=== PATIENT | female | born 1990 | race American Indian/Alaskan Native ===

== ENCOUNTER 2021-02-01 00:08 | Inpatient (IN) | payer MEDICAID, OTHER ==
[2021-02-01] MEDS ORDERED: LACTATED RINGERS 500 ML IV ONE (01:41)
[2021-02-01] MEDS ORDERED: MAGNESIUM SULFATE 40GM/1000ML 40 GM/1,000 ML BAG IV SCH (02:00)
[2021-02-01 03:04] LABS: Bilirubin,Urine NEG (Negative); Blood,Urine NEG (Negative); Color,Urine Yellow (Yellow); Mucus,Urine FEW /HPF; Urobilinogen,Urine < 2.0 mg/dL (<2.0)
[2021-02-01] MEDS: LACTATED RINGERS 1,000 ML IV SCH ×3 (03:35→19:25)
[2021-02-01 03:47] LABS: Basophils % (Auto) 0.2 % (0.0-1.8); Eosinophils # (Auto) 0.1 K/mm3 (0.0-0.4); Eosinophils % (Auto) 0.8 % (0.0-4.3); Hematocrit 32.4 % (30.3-42.9); Hemoglobin 11.3 gm/dl (10.1-14.3); Lymphocytes % (Auto) 13.7 % (13.4-35.0); Mean Corpuscular HGB Conc 35 % (30-34); Mean Corpuscular Volume 92 fl (79-97); Monocytes # (Auto) 1.1 K/mm3 (0.0-0.8); Monocytes % (Auto) 7.8 % (0.0-7.3); Platelet Count 264 K/mm3 (140-440); Red Blood Count 3.53 M/mm3 (3.65-5.03); Red Cell Distribution Width 12.7 % (13.2-15.2)
[2021-02-01] MEDS: AMPICILLIN/NS 2 GM/100 ML 2 GM/100 ML BAG IV SCH ×4 (04:04→22:26)
[2021-02-01] MEDS: BETAMET ACET/BETAMET NA PH 6 MG/ML INJ 5 ML MDV IM SCH (04:07)
[2021-02-01 04:10] LABS: Alanine Aminotransferase 10 units/L (7-56); Albumin 3.6 g/dL (3.9-5); Blood Urea Nitrogen 6 mg/dL (7-17); Calcium 8.7 mg/dL (8.4-10.2); Hemolysis Index 18
[2021-02-01 04:11] LABS: BUN/Creatinine Ratio 10
--- NOTE | 2021-02-01 04:18 | Ultrasound Report ---
ULTRASOUND OBSTETRIC COMPLETE INDICATION / CLINICAL INFORMATION: labor. Clinical Gestational Age (GA) in weeks, days: 30 weeks 5 days TECHNIQUE: Transabdominal. COMPARISON: None available. FINDINGS: NUMBER: Single PRESENTATION: cephalic PLACENTA: anterior and free of the os. MATERNAL ADNEXA: No significant abnormality. AMNIOTIC FLUID VOLUME: decreased AMNIOTIC FLUID INDEX (DULCE) in cm (if measured): 4.9 ANATOMY: Evaluation of anatomy is limited due to a gestational age. No gross anatomic abnormality. organs (including the bladder, stomach, heart, cord insertion, spine and intracranial structures) ar e visualized and show no significant abnormality. MEASUREMENTS: - Biparietal Diameter = 6.9 cm = 27 weeks 6 days - Head Circumference = 25.8 cm = 28 weeks 0 days - Abdominal Circumference = 23.4 cm = 27 weeks 5 days - Femur Length = 5.7 cm = 30 weeks 0 days - Estimated Weight (in grams, if calculated): 1244 - Heart Rate (beats per minute): 129-136 ADDITIONAL FINDINGS: None. AVERAGE ULTRASOUND AGE (AUA) in weeks, days = 28 weeks 3 days BREATHING MOVEMENT = 2 GROSS BODY MOVEMENT = 2 TONE = 2 QUALITATIVE AMNIOTIC FLUID VOLUME = 0 TOTAL BIOPHYSICAL SCORE = 6/8 IMPRESSION: 1. Single live intrauterine in cephalic presentation with AUA of 28 weeks 3 days 2. BPP of 6/8. Diminished DULCE, measuring 4.9 cm, consistent with oligohydramnios. 3. Anterior placenta appears free of the os. Cervical os is not imaged. Signer Name: Arpan Viera MD Signed: 02/01/2021 4:14 AM Workstation Name: [id number]
[2021-02-01] MEDS: AZITHROMYCIN/NS 500 MG/250 ML 500 MG/250 ML BAG IV SCH (07:06)
[2021-02-01] MEDS ORDERED: CALCIUM GLUCONATE 1000 MG/10 ML INJ ONE (08:02)
--- NOTE | 2021-02-01 16:39 | History and Physical Report ---
History of Present Illness Date of examination: 02/01/21 Date of admission: 02/01/21 Chief complaint: leakage of fluid History of present illness: at 30.5wks by LMP by pt report c/w u/sound at [facility]. Pt c/o LOF earlier and came to triage and confirmation with rom plus per nurse report. Pt states that she doesn't remember having a gush of fluid. pt admit to movement, denies vag bleed or headache or feeling ctx. Past History Past Medical History: no pertinent history Past Surgical History: no surgical history Social history: no significant social history - Obstetrical History : 3 Para: 0 Spontaneous Abortions: 2 (SAB less that 3months and 2nd preg loss at 4months) Number of Living Children: 0 Medications and Allergies Allergies Allergy/AdvReac Type Severity Reaction Status Date / Time No Known Allergies Allergy Verified 02/01/21 08:12 Home Medications Medication Instructions Recorded Confirmed Last Taken Type One Daily Tablet 1 tab PO DAILY 02/01/21 02/01/21 Unknown History Active Meds: Active Medications Betamethasone Acet/Betameth SodPhos (Betamet Acet/Betamet Na Ph 6 Mg/Ml Inj 5 Ml Mdv) 12 mg IM Q24H ANA Stop: 02/02/21 02:01 Last Admin: 02/01/21 04:07 Dose: 12 mg Documented by: Lactated Ringer's (Lactated Ringers) 1,000 mls @ 125 mls/hr IV DIRECT ANA Last Admin: 02/01/21 09:21 Dose: 125 mls/hr Documented by: Ampicillin Sodium (Ampicillin/Ns 2 Gm/100 Ml) 2 gm in 100 mls @ 100 mls/hr IV Q6H ANA; Protocol Stop: 02/03/21 01:59 Last Admin: 02/01/21 16:16 Dose: 100 mls/hr Documented by: Azithromycin (Zithromax/Ns) 500 mg in 250 mls @ 250 mls/hr IV Q24H ANA Stop: 02/03/21 01:59 Last Admin: 02/01/21 07:06 Dose: 250 mls/hr Documented by: Magnesium Sulfate (Magnesium Sulfate 40gm/1000ml) 40 gm in 1,000 mls @ 50 mls/hr IV DIRECT ANA Stop: 02/02/21 01:59 Last Infusion: 02/01/21 08:35 Dose: 0 gm/hr, 0 mls/hr Documented by: Review of Systems All systems: negative (leakage of fluid) - Vital Signs Vital signs: Vital Signs Pulse BP 101 H 122/67 02/01/21 00:40 02/01/21 00:40 Temp Pulse Resp BP Pulse Ox 98.6 F 103 H 16 119/71 99 02/01/21 16:19 02/01/21 16:33 02/01/21 16:19 02/01/21 16:17 02/01/21 16:33 - Physical Exam Breasts: Positive: deferred Cardiovascular: Other (mild tacchy asymptomatic) Lungs: Positive: Normal air movement Abdomen: Positive: normal appearance Genitourinary (Female): Positive: normal external genitalia (per nurse report) Uterus: Positive: enlarged (non-tender gravid) Extremities: Positive: normal - Obstetrical FHR: category 1 Uterine Contraction Monitor Mode: External Cervical Dilatation: 1 (per triage nurse) Uterine Contraction Pattern: Irregular (occassional) Results Result Diagrams: 02/01/21 03:25 02/01/21 03:25 Abnormal lab results 02/01/21 02/01/21 02/01/21 Range/Units 00:45 02:10 03:25 WBC 14.7 H (4.5-11.0) K/mm3 RBC 3.53 L (3.65-5.03) M/mm3 MCHC 35 H (30-34) % RDW 12.7 L (13.2-15.2) % [place] % (Auto) 7.8 H (0.0-7.3) % [place] # (Auto) 1.1 H (0.0-0.8) K/mm3 Seg Neutrophils % 77.5 H (40.0-70.0) % Seg Neutrophils # 11.4 H (1.8-7.7) K/mm3 Sodium (137-145) mmol/L BUN (7-17) mg/dL Glucose (65-100) mg/dL Magnesium (1.7-2.3) mg/dL Alkaline Phosphatase (35-129) units/L Albumin (3.9-5) g/dL Urine pH 8.0 H (5.0-7.0) Membranes Rupture Positive A (Negative) 02/01/21 02/01/21 Range/Units 03:25 07:45 WBC (4.5-11.0) K/mm3 RBC (3.65-5.03) M/mm3 MCHC (30-34) % RDW (13.2-15.2) % [place] % (Auto) (0.0-7.3) % [place] # (Auto) (0.0-0.8) K/mm3 Seg Neutrophils % (40.0-70.0) % Seg Neutrophils # (1.8-7.7) K/mm3 Sodium 136 L (137-145) mmol/L BUN 6 L (7-17) mg/dL Glucose 107 H (65-100) mg/dL Magnesium 5.40 H (1.7-2.3) mg/dL Alkaline Phosphatase 139 H (35-129) units/L Albumin 3.6 L (3.9-5) g/dL Urine pH (5.0-7.0) Membranes Rupture (Negative) All other labs normal. Assessment and Plan PPROM at 30.5wk with mild leucocytosis, non-tender uterus and normal FHR 1. Admit and give IV abx for latency Day#1 Amp/erythro 2. Mag sulfate given without bolus at 2gm per hr, same stopped to pt reaction with dizziness, hypotension after 4wks with normal mag level 3. Consult done to dr. Malagon, window/distribution clerk for [facility] today and re-attempt for IV mag recommended however the nurses who observed patient reaction unwilling and pt undecided. will hold for now 4. Betamethasone #1/2 given for lung maturity 5. labor precaution given 6. Wetprep ordered 7. U/Sound done and gest age 28.3wks and wt 1244g, vertex. DULCE 4.9 and BPP 6/10; will repeat BPP in 48hrs Plan of care discussed in detail with patient. All questions encouraged and answered. All questions encouraged and answered
--- NOTE | 2021-02-01 23:44 | Consultation ---
History of Present Illness Consult date: 02/01/21 Requesting physician: KOBE PARRA Reason for consult: PROM (30 YO EGA 30w5d admitted with SROM. She reports feeling periodic cramping/Contractions. She reports feeling periodic LOF, however, denies any fever, chills, odor, abdominal tenderness. She reports good activity.) Past History Past Medical History: no pertinent history Past Surgical History: no surgical history - Obstetrical History : 3 Medications and Allergies Allergies Allergy/AdvReac Type Severity Reaction Status Date / Time No Known Allergies Allergy Verified 02/01/21 08:12 Home Medications Medication Instructions Recorded Confirmed Last Taken Type One Daily Tablet 1 tab PO DAILY 02/01/21 02/01/21 Unknown History Active Meds: Active Medications Betamethasone Acet/Betameth SodPhos (Betamet Acet/Betamet Na Ph 6 Mg/Ml Inj 5 Ml Mdv) 12 mg IM Q24H ANA Stop: 02/02/21 02:01 Last Admin: 02/01/21 04:07 Dose: 12 mg Documented by: Lactated Ringer's (Lactated Ringers) 1,000 mls @ 125 mls/hr IV DIRECT ANA Last Admin: 02/01/21 09:21 Dose: 125 mls/hr Documented by: Ampicillin Sodium (Ampicillin/Ns 2 Gm/100 Ml) 2 gm in 100 mls @ 100 mls/hr IV Q6H ANA; Protocol Stop: 02/03/21 01:59 Last Admin: 02/01/21 22:26 Dose: 100 mls/hr Documented by: Azithromycin (Zithromax/Ns) 500 mg in 250 mls @ 250 mls/hr IV Q24H ANA Stop: 02/03/21 01:59 Last Admin: 02/01/21 07:06 Dose: 250 mls/hr Documented by: Magnesium Sulfate (Magnesium Sulfate 40gm/1000ml) 40 gm in 1,000 mls @ 50 mls/hr IV DIRECT ANA Stop: 02/02/21 01:59 Last Infusion: 02/01/21 08:35 Dose: 0 gm/hr, 0 mls/hr Documented by: - Vital Signs Vital signs: Vital Signs Pulse BP 101 H 122/67 02/01/21 00:40 02/01/21 00:40 Temp Pulse Resp BP Pulse Ox 98.6 F 108 H 20 88/51 100 02/01/21 23:03 02/01/21 23:43 02/01/21 23:03 02/01/21 23:25 02/01/21 23:43 - Physical Exam Breasts: Positive: deferred Cardiovascular: Regular rate Lungs: Positive: Normal air movement Abdomen: Positive: normal appearance, soft Results Result Diagrams: 02/01/21 03:25 02/01/21 03:25 Abnormal lab results 02/01/21 02/01/21 02/01/21 Range/Units 00:45 02:10 03:25 WBC 14.7 H (4.5-11.0) K/mm3 RBC 3.53 L (3.65-5.03) M/mm3 MCHC 35 H (30-34) % RDW 12.7 L (13.2-15.2) % [place] % (Auto) 7.8 H (0.0-7.3) % [place] # (Auto) 1.1 H (0.0-0.8) K/mm3 Seg Neutrophils % 77.5 H (40.0-70.0) % Seg Neutrophils # 11.4 H (1.8-7.7) K/mm3 Sodium (137-145) mmol/L BUN (7-17) mg/dL Glucose (65-100) mg/dL Magnesium (1.7-2.3) mg/dL Alkaline Phosphatase (35-129) units/L Albumin (3.9-5) g/dL Urine pH 8.0 H (5.0-7.0) Membranes Rupture Positive A (Negative) 02/01/21 02/01/21 Range/Units 03:25 07:45 WBC (4.5-11.0) K/mm3 RBC (3.65-5.03) M/mm3 MCHC (30-34) % RDW (13.2-15.2) % [place] % (Auto) (0.0-7.3) % [place] # (Auto) (0.0-0.8) K/mm3 Seg Neutrophils % (40.0-70.0) % Seg Neutrophils # (1.8-7.7) K/mm3 Sodium 136 L (137-145) mmol/L BUN 6 L (7-17) mg/dL Glucose 107 H (65-100) mg/dL Magnesium 5.40 H (1.7-2.3) mg/dL Alkaline Phosphatase 139 H (35-129) units/L Albumin 3.6 L (3.9-5) g/dL Urine pH (5.0-7.0) Membranes Rupture (Negative) All other labs normal. Ultrasound: report reviewed Assessment and Plan IMPRESSIONS: 1. IUP 30w5d 2. SROM with resulting oligohydramnios 3. On Antibiotics 4. Receiving BMZ and MgSO4 5. Reassuring behavior 6. biometry is consistent with 28w3d 7. No sign of chorio 8. Not in labor RECOMMENDATIONS: 1. I agree with her current management 2. Twice weekly BPP 3. growth q 2 weeks 4. Monitor for chorio 5. Monitor for nonreassuring concerns 6. Deliver at 34 weeks with a stale course
--- NOTE | 2021-02-02 04:09 | Progress Note ---
Assessment and Plan HD#2 PPROM with mild leucocytosis, afebrile and normal vitals. Vertex presentation 1. Appreciate Dr. Haylee BIRCH 2. Continuous FHR and toco; regular diet and for delivery at 34wks or earlier if signs of chorio or distress; 3. Will do BPP biweekly and growth every 2-4wks as recommended by [facility]; next BPP ordered for 02/03/21 4. CBC with type and screen every 3days All questions encouraged and answered Subjective Date of service: 02/02/21 Principal diagnosis: HD#2 PPROM with oligo Interval history: pt has no complaints and resting comfortably. When aroused pt admits to movement and not much leakage of fluid, vag bleed or feeling ctx Objective - Constitutional Vitals: Vital Signs - 12hr 02/01/21 02/01/21 02/01/21 16:08 16:13 16:17 Temperature Pulse Rate 103 H 103 H 99 H Respiratory Rate Blood Pressure 119/71 O2 Sat by Pulse 100 100 Oximetry 02/01/21 02/01/21 02/01/21 16:18 16:19 16:23 Temperature 98.6 F Pulse Rate 100 H 107 H Respiratory 16 Rate Blood Pressure O2 Sat by Pulse 100 99 99 Oximetry 02/01/21 02/01/21 02/01/21 16:28 16:33 16:38 Temperature Pulse Rate 100 H 103 H 100 H Respiratory Rate Blood Pressure O2 Sat by Pulse 100 99 100 Oximetry 02/01/21 02/01/21 02/01/21 16:43 16:47 16:48 Temperature Pulse Rate 104 H 100 H 100 H Respiratory Rate Blood Pressure 101/58 O2 Sat by Pulse 100 100 Oximetry 02/01/21 02/01/21 02/01/21 16:53 16:58 17:03 Temperature Pulse Rate 105 H 106 H 101 H Respiratory Rate Blood Pressure O2 Sat by Pulse 98 97 99 Oximetry 02/01/21 02/01/21 02/01/21 17:08 17:13 17:17 Temperature Pulse Rate 109 H 111 H 104 H Respiratory Rate Blood Pressure 106/57 O2 Sat by Pulse 100 99 Oximetry 02/01/21 02/01/21 02/01/21 17:18 17:23 17:28 Temperature Pulse Rate 105 H 111 H 106 H Respiratory Rate Blood Pressure O2 Sat by Pulse 99 99 99 Oximetry 02/01/21 02/01/21 02/01/21 17:33 17:38 17:43 Temperature Pulse Rate 115 H 101 H 102 H Respiratory Rate Blood Pressure O2 Sat by Pulse 99 100 99 Oximetry 02/01/21 02/01/21 02/01/21 17:46 17:48 17:53 Temperature Pulse Rate 107 H 105 H 102 H Respiratory Rate Blood Pressure 113/63 O2 Sat by Pulse 100 100 Oximetry 02/01/21 02/01/21 02/01/21 17:58 18:03 18:08 Temperature Pulse Rate 109 H 106 H 106 H Respiratory Rate Blood Pressure O2 Sat by Pulse 100 100 100 Oximetry 02/01/21 02/01/21 02/01/21 18:13 18:17 18:18 Temperature Pulse Rate 113 H 106 H 101 H Respiratory Rate Blood Pressure 120/61 O2 Sat by Pulse 100 98 Oximetry 02/01/21 02/01/21 02/01/21 18:23 18:28 18:33 Temperature Pulse Rate 106 H 104 H 97 H Respiratory Rate Blood Pressure O2 Sat by Pulse 99 100 98 Oximetry 02/01/21 02/01/21 02/01/21 18:38 18:43 18:48 Temperature Pulse Rate 102 H 109 H 103 H Respiratory Rate Blood Pressure 103/56 O2 Sat by Pulse 100 99 100 Oximetry 02/01/21 02/01/21 02/01/21 18:53 18:58 19:03 Temperature Pulse Rate 107 H 108 H 117 H Respiratory Rate Blood Pressure O2 Sat by Pulse 99 98 100 Oximetry 02/01/21 02/01/21 02/01/21 19:06 19:08 19:13 Temperature 97.4 F L Pulse Rate 109 H 111 H Respiratory 20 Rate Blood Pressure O2 Sat by Pulse 100 100 Oximetry 02/01/21 02/01/21 02/01/21 19:17 19:18 19:23 Temperature Pulse Rate 113 H 114 H 115 H Respiratory Rate Blood Pressure 89/50 O2 Sat by Pulse 100 99 Oximetry 02/01/21 02/01/21 02/01/21 19:25 19:28 19:33 Temperature Pulse Rate 114 H 116 H 110 H Respiratory Rate Blood Pressure 101/59 O2 Sat by Pulse 100 99 Oximetry 02/01/21 02/01/21 02/01/21 19:38 19:43 19:48 Temperature Pulse Rate 111 H 120 H 118 H Respiratory Rate Blood Pressure O2 Sat by Pulse 100 100 100 Oximetry 02/01/21 02/01/21 02/01/21 19:53 19:58 20:03 Temperature Pulse Rate 110 H 112 H 110 H Respiratory Rate Blood Pressure O2 Sat by Pulse 99 99 98 Oximetry 02/01/21 02/01/21 02/01/21 20:08 20:13 20:18 Temperature Pulse Rate 118 H 111 H 107 H Respiratory Rate Blood Pressure O2 Sat by Pulse 100 98 99 Oximetry 02/01/21 02/01/21 02/01/21 20:23 20:26 20:28 Temperature Pulse Rate 111 H 103 H 109 H Respiratory Rate Blood Pressure 108/69 O2 Sat by Pulse 99 99 Oximetry 02/01/21 02/01/21 02/01/21 20:33 20:38 20:43 Temperature Pulse Rate 108 H 110 H 115 H Respiratory Rate Blood Pressure O2 Sat by Pulse 98 98 98 Oximetry 02/01/21 02/01/21 02/01/21 20:48 20:53 20:58 Temperature Pulse Rate 103 H 120 H 107 H Respiratory Rate Blood Pressure O2 Sat by Pulse 98 100 100 Oximetry 02/01/21 02/01/21 02/01/21 21:03 21:08 21:13 Temperature Pulse Rate 106 H 107 H 111 H Respiratory Rate Blood Pressure O2 Sat by Pulse 100 99 100 Oximetry 02/01/21 02/01/21 02/01/21 21:18 21:23 21:26 Temperature Pulse Rate 100 H 98 H 101 H Respiratory Rate Blood Pressure 104/59 O2 Sat by Pulse 99 99 Oximetry 02/01/21 02/01/21 02/01/21 21:28 21:33 21:38 Temperature Pulse Rate 95 H 98 H 97 H Respiratory Rate Blood Pressure O2 Sat by Pulse 98 99 98 Oximetry 02/01/21 02/01/21 02/01/21 21:43 21:48 21:53 Temperature Pulse Rate 100 H 106 H 98 H Respiratory Rate Blood Pressure O2 Sat by Pulse 98 99 99 Oximetry 02/01/21 02/01/21 02/01/21 21:58 22:03 22:08 Temperature Pulse Rate 99 H 97 H 98 H Respiratory Rate Blood Pressure O2 Sat by Pulse 99 99 99 Oximetry 02/01/21 02/01/21 02/01/21 22:13 22:18 22:23 Temperature Pulse Rate 106 H 104 H 107 H Respiratory Rate Blood Pressure O2 Sat by Pulse 99 100 100 Oximetry 02/01/21 02/01/21 02/01/21 22:26 22:28 22:33 Temperature Pulse Rate 112 H 105 H 102 H Respiratory Rate Blood Pressure 104/60 O2 Sat by Pulse 99 99 Oximetry 02/01/21 02/01/21 02/01/21 22:38 22:43 22:48 Temperature Pulse Rate 99 H 101 H 100 H Respiratory Rate Blood Pressure O2 Sat by Pulse 100 100 100 Oximetry 02/01/21 02/01/21 02/01/21 22:53 22:58 23:03 Temperature 98.6 F Pulse Rate 112 H 112 H 112 H Respiratory 20 Rate Blood Pressure O2 Sat by Pulse 100 99 100 Oximetry 02/01/21 02/01/21 02/01/21 23:08 23:13 23:18 Temperature Pulse Rate 107 H 104 H 102 H Respiratory Rate Blood Pressure O2 Sat by Pulse 99 100 100 Oximetry 02/01/21 02/01/21 02/01/21 23:23 23:25 23:28 Temperature Pulse Rate 100 H 103 H 102 H Respiratory Rate Blood Pressure 88/51 O2 Sat by Pulse 100 99 Oximetry 02/01/21 02/01/21 02/01/21 23:33 23:38 23:43 Temperature Pulse Rate 103 H 104 H 108 H Respiratory Rate Blood Pressure O2 Sat by Pulse 100 100 100 Oximetry 02/01/21 02/01/21 02/01/21 23:48 23:53 23:58 Temperature Pulse Rate 105 H 101 H 100 H Respiratory Rate Blood Pressure O2 Sat by Pulse 100 99 100 Oximetry 02/02/21 02/02/21 02/02/21 00:03 00:08 00:13 Temperature Pulse Rate 101 H 104 H 109 H Respiratory Rate Blood Pressure O2 Sat by Pulse 99 98 98 Oximetry 02/02/21 02/02/21 02/02/21 00:18 00:23 00:25 Temperature Pulse Rate 110 H 108 H 106 H Respiratory Rate Blood Pressure 101/55 O2 Sat by Pulse 99 97 Oximetry 02/02/21 02/02/21 02/02/21 00:28 00:33 00:38 Temperature Pulse Rate 110 H 109 H 114 H Respiratory Rate Blood Pressure O2 Sat by Pulse 98 97 92 Oximetry 02/02/21 02/02/21 02/02/21 00:39 00:43 00:45 Temperature Pulse Rate 114 H 101 H 104 H Respiratory Rate Blood Pressure O2 Sat by Pulse 93 100 94 Oximetry 02/02/21 02/02/21 02/02/21 00:48 00:53 00:58 Temperature Pulse Rate 101 H 96 H 100 H Respiratory Rate Blood Pressure O2 Sat by Pulse 100 100 100 Oximetry 02/02/21 02/02/21 02/02/21 01:03 01:08 01:13 Temperature Pulse Rate 104 H 98 H 100 H Respiratory Rate Blood Pressure O2 Sat by Pulse 99 99 100 Oximetry 02/02/21 02/02/21 02/02/21 01:18 01:23 01:26 Temperature Pulse Rate 99 H 92 H 99 H Respiratory Rate Blood Pressure 93/50 O2 Sat by Pulse 100 99 Oximetry 02/02/21 02/02/21 02/02/21 01:28 01:33 01:38 Temperature Pulse Rate 108 H 98 H 102 H Respiratory Rate Blood Pressure O2 Sat by Pulse 97 100 99 Oximetry 02/02/21 02/02/21 02/02/21 01:43 01:48 01:51 Temperature Pulse Rate 100 H 100 H 113 H Respiratory Rate Blood Pressure O2 Sat by Pulse 99 99 90 Oximetry 02/02/21 02/02/21 02/02/21 01:53 01:58 02:03 Temperature Pulse Rate 100 H 94 H 97 H Respiratory Rate Blood Pressure O2 Sat by Pulse 99 99 99 Oximetry 02/02/21 02/02/21 02/02/21 02:08 02:13 02:18 Temperature Pulse Rate 96 H 94 H 94 H Respiratory Rate Blood Pressure O2 Sat by Pulse 99 100 100 Oximetry 02/02/21 02/02/21 02/02/21 02:23 02:25 02:28 Temperature Pulse Rate 89 97 H 90 Respiratory Rate Blood Pressure 93/49 O2 Sat by Pulse 100 98 Oximetry 02/02/21 02/02/21 02/02/21 02:33 02:38 02:43 Temperature Pulse Rate 89 90 96 H Respiratory Rate Blood Pressure O2 Sat by Pulse 99 100 100 Oximetry 02/02/21 02/02/21 02/02/21 02:48 02:53 02:58 Temperature Pulse Rate 91 H 96 H 99 H Respiratory Rate Blood Pressure O2 Sat by Pulse 100 100 100 Oximetry 02/02/21 02/02/21 02/02/21 03:03 03:08 03:13 Temperature Pulse Rate 93 H 96 H 97 H Respiratory Rate Blood Pressure O2 Sat by Pulse 99 100 100 Oximetry 02/02/21 02/02/21 02/02/21 03:18 03:23 03:27 Temperature Pulse Rate 95 H 92 H 101 H Respiratory Rate Blood Pressure 91/50 O2 Sat by Pulse 100 100 Oximetry 02/02/21 02/02/21 02/02/21 03:28 03:33 03:38 Temperature Pulse Rate 92 H 93 H 94 H Respiratory Rate Blood Pressure O2 Sat by Pulse 100 100 100 Oximetry 02/02/21 02/02/21 02/02/21 03:43 03:48 03:53 Temperature Pulse Rate 94 H 94 H 97 H Respiratory Rate Blood Pressure O2 Sat by Pulse 100 100 99 Oximetry 02/02/21 02/02/21 03:58 04:02 Temperature Pulse Rate 104 H 104 H Respiratory Rate Blood Pressure O2 Sat by Pulse 100 92 Oximetry General appearance: Present: no acute distress - Neck Neck: normal ROM - Breasts Breasts: deferred - Gastrointestinal General gastrointestinal: Present: soft, non-tender - Genitourinary Female genitourinary: other (FHR category I and ocassional ctx with uterine tenderness) - Psychiatric Psychiatric: appropriate mood/affect - Labs CBC & Chem 7: 02/01/21 03:25 02/01/21 03:25 Labs: Abnormal lab results 02/01/21 02/01/21 Range/Units 03:25 07:45 Sodium 136 L (137-145) mmol/L BUN 6 L (7-17) mg/dL Glucose 107 H (65-100) mg/dL Magnesium 5.40 H (1.7-2.3) mg/dL Alkaline Phosphatase 139 H (35-129) units/L Albumin 3.6 L (3.9-5) g/dL Medications & Allergies - Medications Allergies/Adverse Reactions: Allergies No Known Allergies Allergy (Verified 02/01/21 08:12) Home Medications: Home Medications Medication Instructions Recorded Confirmed Last Taken Type One Daily Tablet 1 tab PO DAILY 02/01/21 02/01/21 Unknown History Active Medications: Generic Name Dose Route Start Last Admin Trade Name Freq PRN Reason Stop Dose Admin Ampicillin 500 mg 02/03/21 06:00 Ampicillin 500 Mg Cap PO 02/08/21 05:59 Q6HR ANA Protocol Azithromycin 500 mg 02/03/21 10:00 Azithromycin 250 Mg Tab PO 02/08/21 09:59 QDAY ANA Protocol Lactated Ringer's 1,000 mls @ 125 mls/hr 02/01/21 01:45 02/01/21 19:25 Lactated Ringers IV 125 mls/hr DIRECT ANA Administration Ampicillin Sodium 2 gm in 100 mls @ 100 mls/hr 02/01/21 02:00 02/01/21 23:26 Ampicillin/Ns 2 Gm/100 Ml IV 02/03/21 01:59 Infused Q6H ANA Infusion Protocol Azithromycin 500 mg in 250 mls @ 250 mls/hr 02/01/21 02:00 02/01/21 07:06 Zithromax/Ns IV 02/03/21 01:59 250 mls/hr Q24H ANA Administration
[2021-02-02] MEDS: BETAMET ACET/BETAMET NA PH 6 MG/ML INJ 5 ML MDV IM SCH (04:20)
[2021-02-02] MEDS: AMPICILLIN/NS 2 GM/100 ML 2 GM/100 ML BAG IV SCH ×4 (04:20→21:54)
[2021-02-02] MEDS: ACETAMINOPHEN 500 MG TAB PO PRN (04:36)
[2021-02-02] MEDS: AZITHROMYCIN/NS 500 MG/250 ML 500 MG/250 ML BAG IV SCH (06:36)
[2021-02-02] MEDS: LACTATED RINGERS 1,000 ML IV SCH (18:14)
[2021-02-03] MEDS: LACTATED RINGERS 1,000 ML IV SCH ×3 (03:00→21:02)
[2021-02-03] MEDS: AMPICILLIN 500 MG CAP PO SCH ×2 (06:14→19:22)
[2021-02-03] MEDS: ACETAMINOPHEN 500 MG TAB PO PRN ×2 (06:49→16:14)
[2021-02-03] MEDS ORDERED: NITROFURANTOIN MONOHYD/M-CRYST 100 MG CAP PO ONE (07:43)
--- NOTE | 2021-02-03 07:58 | Event Note ---
Date: 02/03/21 Nurse called me with pt c/o pelvic pain with soft abdomen and CNMW Kirsten did pelvic pelvic exam with cervix fingertip and high and FHR category I. Urine culture therefore ordered, repeat ultrasound with DULCE 3.3 and pt afebrile. CBC and type and screen ordered for today instead of tomorrow. Tylenol not effective, therefore nubain for pain and zofran for nausea prn ordered. Pt acontractile at this time. Pt remains with normal heart rate and blood pressures in the lower range without symptoms. Dr. Francois given report and sign off.
--- NOTE | 2021-02-03 08:00 | Ultrasound Report ---
Limited OB Ultrasound Biophysical profile HISTORY: PPROM with oligohydramnios. TECHNIQUE: Grayscale and color imaging performed. COMPARISON: None FINDINGS: Single viable intrauterine gestation with cephalic presentation. DULCE is 3.3 cm which is rep orted to be low for gestational age. Placenta is anterior. Heart rate is 127 bpm. On the biophysical profile, the fetus received a score of 2 out of 2 for breathing, movement, and pos ture/tone. Qualitative DULCE received a 0 out of 2. Total score is 6 out of 8. IMPRESSION: 1. Single viable intrauterine gestation as above with oligohydramnios. 2. BPP score of 6 out of 8 given oligohydramnios. Signer Name: Sanford Delacruz MD Signed: 02/03/2021 7:56 AM Workstation Name: [id number]
--- NOTE | 2021-02-03 08:24 | Progress Note ---
Assessment and Plan PPROM ART 31 WEEKS. CONTINUE TO OBSERVE FOR LABOR. Subjective Date of service: 02/03/21 Principal diagnosis: HD#2 PPROM with oligo Interval history: occ U/C'S, NO FEVER. PT IS COMFORTABLE. FHT CAT 1.CX NOT CHECKED BY ME. Objective - Constitutional Vitals: Vital Signs - 12hr 02/02/21 02/02/21 02/02/21 20:26 20:31 20:36 Temperature Pulse Rate 96 H 96 H 100 H Respiratory Rate Blood Pressure O2 Sat by Pulse 100 100 100 Oximetry 02/02/21 02/02/21 02/02/21 20:41 20:46 20:51 Temperature Pulse Rate 96 H 93 H 97 H Respiratory Rate Blood Pressure O2 Sat by Pulse 100 99 99 Oximetry 02/02/21 02/02/21 02/02/21 20:56 21:01 21:06 Temperature Pulse Rate 96 H 104 H 93 H Respiratory Rate Blood Pressure O2 Sat by Pulse 99 100 98 Oximetry 02/02/21 02/02/21 02/02/21 21:11 21:16 21:21 Temperature Pulse Rate 86 86 89 Respiratory Rate Blood Pressure O2 Sat by Pulse 100 99 99 Oximetry 02/02/21 02/02/21 02/02/21 21:26 21:31 21:36 Temperature Pulse Rate 94 H 92 H 91 H Respiratory Rate Blood Pressure O2 Sat by Pulse 100 100 99 Oximetry 02/02/21 02/02/21 02/02/21 21:41 21:46 21:51 Temperature Pulse Rate 92 H 94 H 87 Respiratory Rate Blood Pressure O2 Sat by Pulse 99 99 100 Oximetry 02/02/21 02/02/21 02/02/21 21:56 22:00 22:01 Temperature 98.6 F Pulse Rate 98 H 108 H Respiratory Rate Blood Pressure O2 Sat by Pulse 100 99 Oximetry 02/02/21 02/02/21 02/02/21 22:06 22:11 22:16 Temperature Pulse Rate 100 H 94 H 95 H Respiratory Rate Blood Pressure O2 Sat by Pulse 99 99 100 Oximetry 02/02/21 02/02/21 02/02/21 22:21 22:26 22:31 Temperature Pulse Rate 99 H 100 H 85 Respiratory Rate Blood Pressure O2 Sat by Pulse 99 99 99 Oximetry 02/02/21 02/02/21 02/02/21 22:36 22:41 22:46 Temperature Pulse Rate 92 H 91 H 95 H Respiratory Rate Blood Pressure O2 Sat by Pulse 99 100 99 Oximetry 02/02/21 02/02/21 02/02/21 22:51 22:56 23:01 Temperature Pulse Rate 92 H 94 H 102 H Respiratory Rate Blood Pressure O2 Sat by Pulse 99 99 98 Oximetry 02/02/21 02/02/21 02/02/21 23:06 23:11 23:16 Temperature Pulse Rate 111 H 91 H 95 H Respiratory Rate Blood Pressure O2 Sat by Pulse 100 98 98 Oximetry 02/02/21 02/02/21 02/02/21 23:21 23:26 23:31 Temperature Pulse Rate 91 H 92 H 93 H Respiratory Rate Blood Pressure O2 Sat by Pulse 100 99 99 Oximetry 02/02/21 02/02/21 02/02/21 23:36 23:41 23:46 Temperature Pulse Rate 95 H 102 H 79 Respiratory Rate Blood Pressure O2 Sat by Pulse 99 99 98 Oximetry 02/02/21 02/02/21 02/03/21 23:51 23:56 00:01 Temperature Pulse Rate 96 H 97 H 88 Respiratory Rate Blood Pressure O2 Sat by Pulse 99 99 98 Oximetry 02/03/21 02/03/21 02/03/21 00:06 00:11 00:16 Temperature Pulse Rate 92 H 96 H 110 H Respiratory Rate Blood Pressure O2 Sat by Pulse 100 99 99 Oximetry 02/03/21 02/03/21 02/03/21 00:21 00:26 00:31 Temperature Pulse Rate 108 H 102 H 97 H Respiratory Rate Blood Pressure O2 Sat by Pulse 99 98 98 Oximetry 02/03/21 02/03/21 02/03/21 00:36 00:41 00:46 Temperature Pulse Rate 96 H 98 H 99 H Respiratory Rate Blood Pressure O2 Sat by Pulse 98 98 98 Oximetry 02/03/21 02/03/21 02/03/21 00:51 00:56 01:01 Temperature Pulse Rate 94 H 93 H 93 H Respiratory Rate Blood Pressure O2 Sat by Pulse 98 98 98 Oximetry 02/03/21 02/03/21 02/03/21 01:06 01:11 01:16 Temperature Pulse Rate 94 H 91 H 93 H Respiratory Rate Blood Pressure O2 Sat by Pulse 97 98 98 Oximetry 02/03/21 02/03/21 02/03/21 01:21 01:26 01:31 Temperature Pulse Rate 89 94 H 95 H Respiratory Rate Blood Pressure O2 Sat by Pulse 97 98 98 Oximetry 02/03/21 02/03/21 02/03/21 01:36 01:41 01:46 Temperature Pulse Rate 88 97 H 97 H Respiratory Rate Blood Pressure O2 Sat by Pulse 98 98 98 Oximetry 02/03/21 02/03/21 02/03/21 01:51 01:56 02:01 Temperature Pulse Rate 92 H 85 84 Respiratory Rate Blood Pressure O2 Sat by Pulse 98 98 98 Oximetry 02/03/21 02/03/21 02/03/21 02:06 02:11 02:16 Temperature Pulse Rate 89 87 96 H Respiratory Rate Blood Pressure O2 Sat by Pulse 98 99 97 Oximetry 02/03/21 02/03/21 02/03/21 02:21 02:26 02:31 Temperature Pulse Rate 97 H 95 H 90 Respiratory Rate Blood Pressure O2 Sat by Pulse 99 98 98 Oximetry 02/03/21 02/03/21 02/03/21 02:36 02:41 02:46 Temperature Pulse Rate 91 H 87 94 H Respiratory Rate Blood Pressure O2 Sat by Pulse 99 98 99 Oximetry 02/03/21 02/03/21 02/03/21 02:51 02:56 02:57 Temperature Pulse Rate 96 H 91 H 86 Respiratory Rate Blood Pressure 79/40 O2 Sat by Pulse 100 99 Oximetry 02/03/21 02/03/21 02/03/21 03:01 03:05 03:06 Temperature 99.1 F Pulse Rate 89 91 H 83 Respiratory Rate Blood Pressure 85/49 90/50 O2 Sat by Pulse 98 99 Oximetry 02/03/21 02/03/21 02/03/21 03:08 03:11 03:16 Temperature Pulse Rate 88 88 90 Respiratory Rate Blood Pressure 91/51 O2 Sat by Pulse 99 100 Oximetry 02/03/21 02/03/21 02/03/21 03:19 03:21 03:26 Temperature Pulse Rate 82 93 H 88 Respiratory Rate Blood Pressure 102/57 O2 Sat by Pulse 99 100 Oximetry 02/03/21 02/03/21 02/03/21 03:30 03:31 03:36 Temperature Pulse Rate 85 102 H 88 Respiratory Rate Blood Pressure 101/62 O2 Sat by Pulse 100 100 Oximetry 02/03/21 02/03/21 02/03/21 03:41 03:46 03:51 Temperature Pulse Rate 88 86 88 Respiratory Rate Blood Pressure O2 Sat by Pulse 99 99 99 Oximetry 02/03/21 02/03/21 02/03/21 03:56 04:01 04:06 Temperature Pulse Rate 86 90 83 Respiratory Rate Blood Pressure 96/52 O2 Sat by Pulse 99 100 99 Oximetry 02/03/21 02/03/21 02/03/21 04:11 04:16 04:21 Temperature Pulse Rate 96 H 88 82 Respiratory Rate Blood Pressure O2 Sat by Pulse 99 99 99 Oximetry 02/03/21 02/03/21 02/03/21 04:26 04:31 04:36 Temperature Pulse Rate 83 80 85 Respiratory Rate Blood Pressure O2 Sat by Pulse 99 99 99 Oximetry 02/03/21 02/03/21 02/03/21 04:41 04:46 04:51 Temperature Pulse Rate 85 86 89 Respiratory Rate Blood Pressure O2 Sat by Pulse 98 99 99 Oximetry 02/03/21 02/03/21 02/03/21 04:56 05:01 05:06 Temperature Pulse Rate 100 H 86 100 H Respiratory Rate Blood Pressure O2 Sat by Pulse 98 99 97 Oximetry 02/03/21 02/03/21 02/03/21 05:11 05:16 05:21 Temperature Pulse Rate 90 90 89 Respiratory Rate Blood Pressure O2 Sat by Pulse 99 99 99 Oximetry 02/03/21 02/03/21 02/03/21 05:26 05:31 05:32 Temperature Pulse Rate 92 H 100 H 93 H Respiratory Rate Blood Pressure 85/46 O2 Sat by Pulse 99 99 Oximetry 02/03/21 02/03/21 02/03/21 05:34 05:36 05:39 Temperature 98.7 F Pulse Rate 95 H 90 88 Respiratory 18 Rate Blood Pressure 82/52 87/54 88/53 O2 Sat by Pulse 99 Oximetry 02/03/21 02/03/21 02/03/21 05:41 05:45 05:46 Temperature Pulse Rate 87 88 88 Respiratory Rate Blood Pressure 93/55 O2 Sat by Pulse 99 100 Oximetry 02/03/21 02/03/21 02/03/21 05:50 05:51 05:55 Temperature Pulse Rate 95 H 88 83 Respiratory Rate Blood Pressure 92/51 98/56 O2 Sat by Pulse 99 Oximetry 07/07/1502/03/21 02/03/21 05:56 06:01 06:06 Temperature Pulse Rate 87 88 107 H Respiratory Rate Blood Pressure 103/57 O2 Sat by Pulse 100 100 100 Oximetry 02/03/21 02/03/21 02/03/21 06:07 06:10 06:11 Temperature Pulse Rate 106 H 104 H 103 H Respiratory Rate Blood Pressure 112/67 108/76 O2 Sat by Pulse 100 Oximetry 02/03/21 02/03/21 02/03/21 06:16 06:21 06:26 Temperature Pulse Rate 89 91 H 86 Respiratory Rate Blood Pressure O2 Sat by Pulse 100 100 99 Oximetry 02/03/21 02/03/21 02/03/21 06:31 06:36 06:41 Temperature Pulse Rate 92 H 93 H 92 H Respiratory Rate Blood Pressure O2 Sat by Pulse 99 98 99 Oximetry 02/03/21 02/03/21 02/03/21 06:46 06:51 06:56 Temperature Pulse Rate 93 H 92 H 93 H Respiratory Rate Blood Pressure O2 Sat by Pulse 99 100 100 Oximetry 02/03/21 02/03/21 02/03/21 07:01 07:06 07:11 Temperature Pulse Rate 88 96 H 89 Respiratory Rate Blood Pressure O2 Sat by Pulse 100 100 100 Oximetry 02/03/21 02/03/21 02/03/21 07:16 07:21 07:26 Temperature Pulse Rate 94 H 94 H 98 H Respiratory Rate Blood Pressure O2 Sat by Pulse 99 99 99 Oximetry 02/03/21 02/03/21 02/03/21 07:31 07:36 07:41 Temperature Pulse Rate 93 H 98 H 104 H Respiratory Rate Blood Pressure O2 Sat by Pulse 99 99 99 Oximetry 02/03/21 02/03/21 02/03/21 07:46 07:51 07:56 Temperature Pulse Rate 93 H 93 H 89 Respiratory Rate Blood Pressure O2 Sat by Pulse 99 99 99 Oximetry 02/03/21 02/03/21 02/03/21 08:01 08:06 08:11 Temperature Pulse Rate 96 H 100 H 92 H Respiratory Rate Blood Pressure O2 Sat by Pulse 99 100 99 Oximetry 02/03/21 08:16 Temperature Pulse Rate 105 H Respiratory Rate Blood Pressure O2 Sat by Pulse 97 Oximetry General appearance: Present: no acute distress, well-nourished - Labs CBC & Chem 7: 02/01/21 03:25 02/01/21 03:25 Medications & Allergies - Medications Allergies/Adverse Reactions: Allergies No Known Allergies Allergy (Verified 02/01/21 08:12) Home Medications: Home Medications Medication Instructions Recorded Confirmed Last Taken Type One Daily Tablet 1 tab PO DAILY 02/01/21 02/01/21 Unknown History Active Medications: Generic Name Dose Route Start Last Admin Trade Name Freq PRN Reason Stop Dose Admin Acetaminophen 1,000 mg 02/02/21 04:28 02/03/21 06:49 Acetaminophen 500 Mg Tab PO 1,000 mg Q6H PRN Administration Pain, Mild (1-3) Ampicillin 500 mg 02/03/21 06:00 02/03/21 06:14 Ampicillin 500 Mg Cap PO 02/08/21 05:59 500 mg Q6HR ANA Administration Protocol Azithromycin 500 mg 02/03/21 10:00 Azithromycin 250 Mg Tab PO 02/08/21 09:59 QDAY ANA Protocol Lactated Ringer's 1,000 mls @ 125 mls/hr 02/01/21 01:45 02/03/21 03:00 Lactated Ringers IV 999 mls/hr DIRECT ANA Administration Nalbuphine HCl 10 mg 02/03/21 08:00 02/03/21 08:08 Nalbuphine 10 Mg/1 Ml Inj IV 10 mg Q3H PRN Administration Pain, Moderate (4-6) Ondansetron HCl 4 mg 02/03/21 08:30 02/03/21 08:14 Ondansetron 4 Mg/2 Ml Inj IV 4 mg Q8H PRN Administration Nausea And Vomiting
[2021-02-03] MEDS ORDERED: ONDANSETRON 4 MG/2 ML INJ IV PRN (08:30)
[2021-02-03] MEDS: NalbUPHINE 10 MG/1 ML INJ IV PRN ×2 (09:00→16:09)
[2021-02-03] MEDS: AZITHROMYCIN 250 MG TAB PO SCH ×2 (10:45→12:50)
[2021-02-03 16:38] LABS: Hematocrit 27.3 % (30.3-42.9); Hemoglobin 9.3 gm/dl (10.1-14.3); Mean Corpuscular HGB Conc 34 % (30-34); Mean Corpuscular Volume 92 fl (79-97); Platelet Count 232 K/mm3 (140-440); Red Blood Count 2.96 M/mm3 (3.65-5.03); Red Cell Distribution Width 12.9 % (13.2-15.2)
[2021-02-03] MEDS ORDERED: ACETAMINOPHEN 325 MG TAB PO PRN (17:00)
[2021-02-03] MEDS ORDERED: NalbUPHINE 10 MG/1 ML INJ IV PRN (17:00)
[2021-02-03 17:19] LABS: Total Cells Counted 100
[2021-02-03 17:20] LABS: RBC Morphology Normal
[2021-02-03] MEDS ORDERED: BUTORPHANOL 2 MG/1 ML INJ IV PRN (19:11)
[2021-02-03] MEDS ORDERED: AMMONIA INHALANT IH ONE (20:06)
[2021-02-03] MEDS ORDERED: ePHEDrine SULFATE 50 MG/1 ML INJ ONE (20:57)
[2021-02-03] MEDS ORDERED: ePHEDrine SULFATE 50 MG/1 ML INJ IV PRN (21:08)
[2021-02-03] MEDS ORDERED: NALOXONE 2 MG/2 ML INJ IV PRN (21:08)
--- NOTE | 2021-02-03 21:08 | Anesthesia Consultation ---
Anesthesia Consult and Med Hx Date of service: 02/03/21 - Airway Anesthetic Teeth Evaluation: Good ROM Head & Neck: Adequate Mental/Hyoid Distance: Adequate Mallampati Class: Class II Intubation Access Assessment: Probably Good - Pulmonary Exam CTA: Yes - Cardiac Exam Cardiac Exam: RRR - Pre-Operative Health Status ASA Pre-Surgery Classification: ASA2 Proposed Anesthetic Plan: Epidural - Pulmonary Hx Asthma: No COPD: No Hx Pneumonia: No - Cardiovascular System Hx Hypertension: No - Central Nervous System Hx Seizures: No Hx Psychiatric Problems: No - Endocrine Hx Renal Disease: No Hx End Stage Renal Disease: No Hx Hypothyroidism: No Hx Hyperthyroidism: No - Hematic Hx Anemia: No Hx Sickle Cell Disease: No
--- NOTE | 2021-02-03 21:29 | Progress Note ---
Labor Epidural - Labor Epidural Start Time: 21:18 Stop Time: 21:21 Performed by:: MARCUS LEON Procedure: Patient is requesting epidural for labor pain. H&P, and labs reviewed. Procedure explained, questions answered, consent obtained. Patient in sitting position with blood pressure cuff and pulse ox on and working. Timeout performed immediately before start of procedure. Sterile chlorahexadine 0.5% prep/drape. 5 mL 1% lidocaine skin wheal at L[3]-L[4]. 18-gauge CallGrader epidural needle advanced to [id number] with saline at [7] cm. Epidural dexmedetomidine [30] mcg administered. Epidural catheter advanced to [12] cm, negative aspiration for blood and csf, negative test dose 3 ml 1.5% lidocaine with epinephrine. Sterile steri-strips and tegaderm applied, followed by tape reinforcement. Patient tolerated procedure well.
[2021-02-03] MEDS ORDERED: fentaNYL-BUPIV 2 MCG/ML-0.125% 200 MCG/100 ML BAG EPIDURAL SCH (22:00)
[2021-02-04] MEDS ORDERED: OXYTOCIN DRIP 30,000 MILLIUNITS/500 ML BAG IV ONE ×3 (06:05→07:08)
[2021-02-04] MEDS ORDERED: BUPIVACAINE/PF (0.25%) 2.5 MG/ML 10 ML VIAL INFILTRATI ONE (06:12)
[2021-02-04] MEDS ORDERED: STARTER TPN - NICU 250 ML IV ONE (06:22)
--- NOTE | 2021-02-04 07:34 | Procedure Note ---
OB Delivery Note - Delivery Date of Delivery: 02/04/21 Surgeon: JUAN WILDER JR Rn Cardiac Rehab: SHELBY LONG Estimated blood loss: 100cc - Vaginal Delivery presentation: vertex Delivery position: OA Intrapartum events: labor-<37 weeks, PROM->1hr before delivery Delivery induction: none Delivery monitor: external FHT, external uterine Route of delivery: Delivery placenta: uterine exploration (s/p failed uterine exploration after cord avulsion for possible D&C) Episiotomy: none Delivery laceration: none Anesthesia: epidural Delivery comments: Spontaneous vaginal delivery by TEJA Long at 0621. Delivery of male . APGARS 8/9. Ht. 15.5 inches Wt 1490g. Placenta left in situ. On attempted extraction, cord avulsion with failed manual extraction 2/2 clamped internal cervical os. Pitocin started. Plan for possible D&C for retained placenta. No lacerations noted. - Infant A at 1 minute: 8 at 5 minutes: 9 Gender: Male
[2021-02-04] MEDS ORDERED: LIDOCAINE PF 100 MG/5 ML (CARDIAC SYRINGE) IV ONE ×2 (07:49→07:50)
[2021-02-04] MEDS ORDERED: SODIUM CHLORIDE 0.9% 500 ML 500 ML IV ONE (07:59)
[2021-02-04] MEDS ORDERED: propofoL 200 MG/20 ML VIAL IV ONE ×3 (08:13→08:45)
[2021-02-04] MEDS ORDERED: KETAMINE/STERILE WATER 50 MG/ML SYRINGE ONE (08:17)
[2021-02-04] MEDS ORDERED: SODIUM CHLORIDE 0.9% IRR 1,500 ML BOTTLE IR ONE (08:20)
[2021-02-04] MEDS ORDERED: diphenhydrAMINE 25 MG CAP PO PRN (09:00)
[2021-02-04] MEDS ORDERED: WITCH HAZEL/ GLYCERIN PAD TP PRN (09:00)
[2021-02-04] MEDS ORDERED: ONDANSETRON 4 MG/2 ML INJ IV PRN (09:00)
[2021-02-04] MEDS ORDERED: PROMETHAZINE 25 MG TAB PO PRN (09:00)
[2021-02-04] MEDS ORDERED: ACETAMINOPHEN 325 MG TAB PO PRN (09:00)
[2021-02-04] MEDS ORDERED: PROMETHAZINE 25 MG RECT SUPP PR PRN (09:00)
[2021-02-04] MEDS ORDERED: MIDAZOLAM 2 MG/2 ML INJ ONE (09:28)
[2021-02-04] MEDS ORDERED: LANOLIN/ZINC/DIMETHICONE (LANSINOH) 7 GM TP PRN (10:00)
[2021-02-04] MEDS: oxyCODONE /ACETAMINOPHEN 5-325MG TAB PO PRN (10:33)
[2021-02-04] MEDS: IBUPROFEN 600 MG TAB PO SCH ×3 (12:30→22:19)
[2021-02-04] MEDS: AMPICILLIN 500 MG CAP PO SCH (18:37)
[2021-02-04] MEDS: AZITHROMYCIN 250 MG TAB PO SCH (18:38)
[2021-02-04 18:51] LABS: Hematocrit 29.8 % (30.3-42.9)
--- NOTE | 2021-02-04 20:02 | Post Anesthesia Evaluation ---
- Post Anesthesia Evaluation Patient Participated: Yes Airway Patent: Yes Stable Respiratory Function: Yes Nausea/Vomiting: No Temp > 96.8F: Yes Pain Manageable: Yes Adequeate Hydration: Yes Anesthesia Complications: No Block Receding Appropriately: Yes
[2021-02-04] MEDS ORDERED: MAGNESIUM HYDROXIDE (MOM) ORAL LIQD UDC PO PRN (22:00)
[2021-02-05] MEDS: AMPICILLIN 500 MG CAP PO SCH ×2 (00:48→06:29)
[2021-02-05] MEDS: IBUPROFEN 600 MG TAB PO SCH ×2 (06:29→15:41)
--- NOTE | 2021-02-05 09:47 | Procedure Note ---
Date of procedure: 02/04/21 Pre-op diagnosis: retained placenta s/p cord avulsion Post-op diagnosis: same Procedure: Preoperative diagnosis: 1. Retained placenta Postoperative diagnosis: 1. Same Operation performed: 1. Examined under anesthesia 2. Dilation & curettage, ultrasound guided Surgeon: Juan Wilder MD Flue Cleaner: Odalis Torres MD Anesthesia: IV and epidural EBL: 1000cc UOP: 100cc IVF 2 units pRBCs ordered Pathology specimens: Uterine contents Complications: none Disposition and condition: To the PACU in stable condition then discharged home Findings: 1. 12 week size mobile uterus 2. Moderate amount of products of conception Statement of medical necessity: 34 yo A2 POD0 s/p of 31 week gestation woman is post failed placental extraction after cord avulsion after the vaginal delivery. She desired surgical management. The procedure risk benefits, i ndications and alternatives reviewed patient. Description of operation: After informed consent, the patient was taken to the OR and placed in Pepe stirrups after general anesthesia was administered. An exam under anesthesia was performed with the findings noted above. The vagina was prepped and draped in the usual sterile fashion. Did not catheterization of the bladder was performed. A duckbill speculum was placed to visualize the cervix. A ring forcep was placed onto the anterior cervical lip. The uterus was gently sounded to 14 centimeters. Suction was calibrated to 60 mmHg, and a 14 millimeters curette was gently advanced into the uterine cavity fundus. Suction was applied, and the curette was rotated to evacuate the uterus of products of conception. A sharp curettage and Bango currettage was performed until a gritty texture was noted. Suction curettage was repeated to clear the remaining products of conception. Minimal bleeding was noted. The ring forcep was removed from the cervix with good hemostasis noted. The speculum was removed. Patient tolerated the procedure well and was taken to recovery room in good condition. Anesthesia: epidural, other (IV pain medication) Surgeon: JUAN WILDER JR Flue Cleaner: ODALIS TORRES Estimated blood loss: other (1000cc) Urine output: 200 Pathology: list (uterine contents) Specimen disposition: to lab Condition: stable Disposition: floor
--- NOTE | 2021-02-05 11:45 | Event Note ---
Date: 02/05/21 ([id number]) patient not in room at the time of rounds
[2021-02-05] MEDS: oxyCODONE /ACETAMINOPHEN 5-325MG TAB PO PRN (16:51)
[2021-02-05] MEDS ORDERED: LACTATED RINGERS 1,000 ML IV ONE (18:55)
[2021-02-05 20:01] LABS: Hematocrit 24.4 % (30.3-42.9); Hemoglobin 8.1 gm/dl (10.1-14.3); Mean Corpuscular HGB Conc 33 % (30-34); Mean Corpuscular Volume 89 fl (79-97); Platelet Count 182 K/mm3 (140-440); Red Blood Count 2.74 M/mm3 (3.65-5.03)
[2021-02-05 20:38] LABS: Band Neutrophils # (Manual) 0.2 K/mm3; Total Cells Counted 100
[2021-02-05 20:39] LABS: Anisocytosis 1+; Platelet Estimate Consistent w Auto
[2021-02-06] MEDS: IBUPROFEN 600 MG TAB PO SCH ×3 (06:10→23:27)
[2021-02-06] MEDS: oxyCODONE /ACETAMINOPHEN 5-325MG TAB PO PRN (08:53)
--- NOTE | 2021-02-06 09:31 | Progress Note ---
Assessment and Plan A: S/P with d&c Anemia p: INFED 100mg IM now Ferrous Sulfate po bid Encourage foods high in Fe D/C home per pt's request Subjective - Subjective Date of service: 02/06/21 Principal diagnosis: HD#2 PPROM with oligo Patient reports: appetite normal, voiding normally, pain well controlled, ambulating normally, other (Pt with c/o feeling tired and weak, but denes sob or dizziness.) : doing well, in NICU, bottle feeding Objective - Vital Signs Latest vital signs: Vital Signs Temp Pulse Resp BP BP Pulse Ox 02/06/21 08:53 20 02/06/21 04:37 99.9 F H 109 H 20 104/59 99 02/05/21 23:40 98.4 F 91 H 18 97/48 99 02/05/21 20:41 98.5 F 109 H 20 104/50 100 02/05/21 19:45 101 H 93/49 02/05/21 19:15 98.2 F 100 H 20 106/55 02/05/21 18:00 114 H 99 02/05/21 16:52 104 H 99 02/05/21 16:43 98.6 F 110 H 18 99/52 100 Intake and Output 02/05/21 02/06/21 02/06/21 22:59 06:59 14:59 Intake Total 120 Balance 120 Intake: Oral 120 Other: Total, Intake Amount 120 # Voids Void 1 - Exam Breasts: Present: normal Abdomen: Present: normal appearance, soft, normal bowel sounds Vulva: both: normal Uterus: Present: normal, firm, fundal height below umbilicus Extremities: Present: normal - Labs Labs: Abnormal lab results 02/05/21 Range/Units 19:32 WBC 17.4 H (4.5-11.0) K/mm3 RBC 2.74 L (3.65-5.03) M/mm3 Hgb 8.1 L (10.1-14.3) gm/dl Hct 24.4 L (30.3-42.9) % RDW 16.0 H (13.2-15.2) % Seg Neutrophils # Man 12.0 H (1.8-7.7) K/mm3 Monocytes # (Manual) 1.2 H (0.0-0.8) K/mm3
--- NOTE | 2021-02-06 09:38 | Discharge Summary ---
Providers - Providers Date of Admission: 02/03/21 16:55 Date of discharge: 02/06/21 Attending physician: KOBE PARRA 02/01/21 01:41 Consult to Physician [CONS] Routine Comment: Consulting Provider: [facility] Physician Instructions: Reason For Exam: labor Primary care physician: KOBE PARRA Hospitalization Reason for admission: active labor, labor Delivery: Episiotomy: none Laceration: none Other procedures: curettage, other (d&c) complications: retained placenta, other (avulsion with d&c for retained placenta) Discharge diagnosis: IUP at term delivered, delivery [place] baby: male Hospital course: Pt was admitted to [facility] in active labor. She had a male. Pt had a retained placenta with avulsion and underwent a D&C. She latter dev anemia pp. She received Infed and was sent home on Fe bid. Condition at discharge: Stable Disposition: DC- TO HOME OR SELFCARE Plan - Discharge Medications Prescriptions: Ferrous Sulfate [Feosol 325 MG tab] 325 mg PO BID #120 tablet Ibuprofen [Motrin 600 MG tab] 600 mg PO Q6H #30 tablet - Provider Discharge Summary Activity: routine, no sex for 6 weeks, no heavy lifting 4 weeks, no strenuous exercise Diet: other (high in Fe) Instructions: routine Additional instructions: [] Smoking cessation referral if applicable(refer to patient education folder for contact #) [] Refer to [facility] Booklet Call your doctor immediately for: * Fever > 100.5 * Heavy vaginal bleeding ( >1 pad per hour) * Severe persistent headache * Shortness of breath * Reddened, hot, painful area to leg or breast * Drainage or odor from incision. * Keep incision clean and dry at all times and follow doctor's instructions regarding bathing/showering - Follow up plan Follow up: KOBE PARRA MD [Primary Care Provider] - 6 Weeks
[2021-02-06] MEDS ORDERED: IRON DEXTRAN COMPLEX 100 MG/2 ML INJ IM SCH (10:00)
[2021-02-06] MEDS: FERROUS SULFATE 325 MG TAB PO SCH ×2 (10:56→23:27)
[2021-02-06 11:32] LABS: Hematocrit 21.9 % (30.3-42.9); Hemoglobin 7.5 gm/dl (10.1-14.3); Mean Corpuscular HGB Conc 34 % (30-34); Mean Corpuscular Volume 87 fl (79-97); Platelet Count 196 K/mm3 (140-440); Red Blood Count 2.51 M/mm3 (3.65-5.03); Red Cell Distribution Width 15.6 % (13.2-15.2)
[2021-02-06 15:24] LABS: Total Cells Counted 100
[2021-02-06 15:25] LABS: Platelet Estimate Consistent w Auto; RBC Morphology Normal
[2021-02-06 22:14] LABS: Bilirubin,Urine NEG (Negative); Blood,Urine MOD (Negative); Color,Urine Yellow (Yellow); Mucus,Urine FEW /HPF; Protein,Urine <15 mg/dL mg/dL (Negative)
--- NOTE | 2021-02-06 22:23 | Consultation ---
History of Present Illness - Reason for Consult Consult date: 02/06/21 Medical management Requesting physician: KOBE PARRA - History of Present Illness 30-year-old -[place] female with intrauterine of 30.5 weeks admitted for stabilization of . Was asked to evaluate the patient for tachycardia. On review of the chart and seeing the patient--- patient has a high white count and urinary tract infection. No signs of dehydration. Patient on IV fluids. Past History Past Medical History: No medical history Past Surgical History: No surgical history Social history: no significant social history, lives with family, full code Family history: hypertension Medications and Allergies Allergies Allergy/AdvReac Type Severity Reaction Status Date / Time No Known Allergies Allergy Verified 02/01/21 08:12 Home Medications Medication Instructions Recorded Confirmed Last Taken Type One Daily Tablet 1 tab PO DAILY 02/01/21 02/01/21 Unknown History Ferrous Sulfate [Feosol 325 MG tab] 325 mg PO BID #120 tablet 02/06/21 Unknown Rx Ibuprofen [Motrin 600 MG tab] 600 mg PO Q6H #30 tablet 02/06/21 Unknown Rx Active Meds: Active Medications Acetaminophen (Acetaminophen 325 Mg Tab) 650 mg PO Q4H PRN PRN Reason: Pain MILD(1-3)/Fever >100.5/NYE Bisacodyl (Bisacodyl 10 Mg Rect Supp) 10 mg VA BID PRN PRN Reason: Constipation Butorphanol Tartrate (Butorphanol 2 Mg/1 Ml Inj) 2 mg IV Q1H PRN PRN Reason: Labor Pain Last Admin: 02/03/21 19:26 Dose: 2 mg Documented by: Diphenhydramine HCl (Diphenhydramine 25 Mg Cap) 25 mg PO Q6H PRN PRN Reason: Itching Ephedrine Sulfate (Ephedrine Sulfate 50 Mg/1 Ml Inj) 10 mg IV Q2M PRN PRN Reason: Hypotension Ferrous Sulfate (Ferrous Sulfate 325 Mg Tab) 325 mg PO BID ANA Last Admin: 02/06/21 10:56 Dose: 325 mg Documented by: Lactated Ringer's (Lactated Ringers) 1,000 mls @ 125 mls/hr IV DIRECT ANA Last Admin: 02/03/21 21:02 Dose: 125 mls/hr Documented by: Fentanyl/Bupivacaine/Sodium Chlor (Fentanyl-Bupiv 2 Mcg/Ml-0.125%) 200 mcg in 100 mls @ 10 mls/hr EPIDURAL TITR ANA; Protocol Last Admin: 02/03/21 21:41 Dose: 10 mls/hr Documented by: Ibuprofen (Ibuprofen 600 Mg Tab) 600 mg PO Q6H ANA Last Admin: 02/06/21 15:55 Dose: 600 mg Documented by: Magnesium Hydroxide (Magnesium Hydroxide (Mom) Oral Liqd Udc) 30 ml PO HS PRN PRN Reason: Constipation Multi-Ingredient Ointment (Lanolin/Zinc/Dimethicone (Lansinoh) 7 Gm) 1 applic TP PRN PRN PRN Reason: Sore Nipples Nalbuphine HCl (Nalbuphine 10 Mg/1 Ml Inj) 10 mg IV Q2H PRN PRN Reason: Pain, Moderate (4-6) Naloxone HCl (Naloxone 2 Mg/2 Ml Inj) 0.2 mg IV Q5M PRN PRN Reason: Respiratory sedation Ondansetron HCl (Ondansetron 4 Mg/2 Ml Inj) 4 mg IV Q8H PRN PRN Reason: Nausea And Vomiting Oxycodone/Acetaminophen (Oxycodone /Acetaminophen 5-325mg Tab) 1 tab PO Q6H PRN PRN Reason: Pain, Moderate (4-6) Last Admin: 02/06/21 08:53 Dose: 1 tab Documented by: Promethazine HCl (Promethazine 25 Mg Rect Supp) 25 mg VA Q6H PRN PRN Reason: Nausea And Vomiting Promethazine HCl (Promethazine 25 Mg Tab) 25 mg PO Q6H PRN PRN Reason: Nausea And Vomiting Sodium Chloride (Sodium Chloride 0.9% 10 Ml Flush Syringe) 10 ml IV PRN NR Stop: 02/16/21 08:59 Witch Emilie/Glycerin (Witch Emilie/ Glycerin Pad) 1 each TP PRN PRN PRN Reason: Hemorrhoid/cleansing/soothing Review of Systems All systems: negative Exam - Constitutional Vitals: Temp Pulse Resp BP Pulse Ox 98.1 F 100 H 18 94/47 99 02/06/21 19:59 02/06/21 20:00 02/06/21 19:59 02/06/21 19:59 02/06/21 19:59 General appearance: Present: no acute distress, well-nourished - EENT Eyes: Present: PERRL ENT: hearing intact, clear oral mucosa - Neck Neck: Present: supple, normal ROM - Respiratory Respiratory effort: normal Respiratory: bilateral: CTA - Cardiovascular Heart rate: 78 Rhythm: regular Heart Sounds: Present: S1 & S2. Absent: rub, click - Extremities Extremities: pulses symmetrical, No edema Peripheral Pulses: within normal limits - Abdominal General gastrointestinal: Present: soft, non-tender, non-distended, normal bowel sounds Female genitourinary: Present: normal - Integumentary Integumentary: Present: clear, warm, dry - Musculoskeletal Musculoskeletal: gait normal, strength equal bilaterally - Psychiatric Psychiatric: appropriate mood/affect, intact judgment & insight - Neurologic Neurologic: CNII-XII intact, moves all extremities Results - Labs CBC & Chem 7: 02/06/21 11:11 02/01/21 03:25 Labs: Abnormal lab results 02/06/21 02/06/21 Range/Units 11:11 21:50 WBC 17.1 H (4.5-11.0) K/mm3 RBC 2.51 L (3.65-5.03) M/mm3 Hgb 7.5 L (10.1-14.3) gm/dl Hct 21.9 L (30.3-42.9) % RDW 15.6 H (13.2-15.2) % Seg Neuts % (Manual) 90.0 H (40.0-70.0) % Lymphocytes % (Manual) 5.0 L (13.4-35.0) % Seg Neutrophils # Man 15.4 H (1.8-7.7) K/mm3 Lymphocytes # (Manual) 0.9 L (1.2-5.4) K/mm3 Monocytes # (Manual) 0.9 H (0.0-0.8) K/mm3 Urine WBC (Auto) 36.0 H (0.0-6.0) /HPF Short CBC 02/06/21 Range/Units 11:11 WBC 17.1 H (4.5-11.0) K/mm3 Hgb 7.5 L (10.1-14.3) gm/dl Hct 21.9 L (30.3-42.9) % Plt Count 196 (140-440) K/mm3 Urine 02/06/21 Range/Units 21:50 Urine Color Yellow (Yellow) Urine pH 7.0 (5.0-7.0) Ur Specific [place] 1.018 (1.003-1.030) Urine Protein <15 mg/dl (Negative) mg/dL Urine Glucose (UA) Neg (Negative) mg/dL Assessment and Plan - Patient Problems (1) SIRS (systemic inflammatory response syndrome) Current Visit: Yes Status: Acute Plan to address problem: Patient has leukocytosis and tachycardia patient started on IV ceftriaxone for UTI (2) Acute cystitis Current Visit: Yes Status: Acute Qualifiers: Hematuria presence: without hematuria Qualified Code(s): N30.00 - Acute cystitis without hematuria Plan to address problem: Patient has urinary white blood cells of about 36 patient initiated on IV Rocephin urine cultures pending patient may be discharged tomorrow on oral cephalexin 500 3 times a day for 5 days and follow-up with [facility] [employer] [employer] as outpatient check the cultures as outpatient (3) Anemia Current Visit: Yes Status: Chronic Qualifiers: Anemia type: iron deficiency Plan to address problem: Nutritional patient on iron tablets check iron studies and folic acid and vitamin B12 (4) Sinus tachycardia Current Visit: Yes Status: Acute Plan to address problem: On IV fluids and IV antibiotics secondary to urinary tract infection and anemia when discharged tomorrow on oral antibiotics (5) DVT prophylaxis Current Visit: Yes Status: Acute Plan to address problem: On SCDs
[2021-02-06] MEDS ORDERED: cefTRIAXone/NS 2 GM/100 ML 2 GM/100 ML BAG IV SCH (23:00)
[2021-02-07] MEDS: IBUPROFEN 600 MG TAB PO SCH ×2 (03:00→12:29)
[2021-02-07] MEDS: oxyCODONE /ACETAMINOPHEN 5-325MG TAB PO PRN (09:35)
[2021-02-07] MEDS: FERROUS SULFATE 325 MG TAB PO SCH (10:00)
--- NOTE | 2021-02-07 10:18 | Electrocardiograph Report ---
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
[2021-02-07 11:33] LABS: Hematocrit 26.6 % (30.3-42.9)
--- NOTE | 2021-02-07 11:35 | Progress Note ---
Assessment and Plan A: day 3 S/P followed by D&C for retained placenta. Tachycardia resolved. Leukocytosis: now trending downward. Anemia. P: Consulted with Dr. Tam. Dr. Tam orders to discharge patient home today with Rx for Flagyl and Keflex for 10 days. Discussed with patient discharge instructions and warning signs. Called the following Rx to [facility] on [facility] and instructed patient to pick them up and take as prescribed: Keflex 500 mg, #30, 1 po TID; Flagyl 500 mg, #20, 1 po BID; Ferrous Sulfate 325 mg, #60, 1 po BID. Advised patient to avoid intercourse, lifting, heavy housework. Advised patient to follow up at [facility] office next week. Patient voiced understanding of all instructions. Subjective - Subjective Date of service: 02/07/21 Principal diagnosis: day 3 S/P Interval history: Patient is receiving Rocephin IV as ordered by Dr. Nagy. Patient denies flank pain. Denies nausea/vomiting. Afebrile. Tachycardia has resolved. Patient reports scant lochia. Voiding without difficulty and passing gas. Denies leg pain. Cleared by hospitalist and [facility] for discharge home today. Patient reports: appetite normal, voiding normally, pain well controlled, flatus, ambulating normally, no dizzy ambulation, no nauseated : in NICU Objective - Vital Signs Latest vital signs: Vital Signs Temp Pulse Resp BP BP Pulse Ox 02/07/21 07:44 98.3 F 90 18 104/62 99 02/07/21 05:01 98.2 F 89 20 92/49 99 02/07/21 03:00 16 02/07/21 00:04 98.6 F 88 20 103/63 98 02/06/21 23:27 18 02/06/21 20:00 100 H 02/06/21 19:59 98.1 F 108 H 18 94/47 99 02/06/21 17:21 98.1 F 105 H 18 92/49 98 Intake and Output 02/06/21 02/07/21 02/07/21 23:59 07:59 15:59 Intake Total 360 120 Balance 360 120 Intake: Oral 120 Intake, Free Water 360 Other: Total, Intake Amount 120 # Voids Void 2 1 - Exam Cardiovascular: Present: Regular rate Lungs: Present: Clear to auscultation Abdomen: Present: normal appearance, soft, normal bowel sounds. Absent: distention, tenderness, guarding, rigidity Uterus: Present: normal, firm, fundal height below umbilicus. Absent: bogginess, tenderness Extremities: Absent: tenderness, edema - Labs Labs: Abnormal lab results 02/06/21 02/06/21 Range/Units 11:11 21:50 WBC 17.1 H (4.5-11.0) K/mm3 RBC 2.51 L (3.65-5.03) M/mm3 Hgb 7.5 L (10.1-14.3) gm/dl Hct 21.9 L (30.3-42.9) % RDW 15.6 H (13.2-15.2) % Seg Neuts % (Manual) 90.0 H (40.0-70.0) % Lymphocytes % (Manual) 5.0 L (13.4-35.0) % Seg Neutrophils # Man 15.4 H (1.8-7.7) K/mm3 Lymphocytes # (Manual) 0.9 L (1.2-5.4) K/mm3 Monocytes # (Manual) 0.9 H (0.0-0.8) K/mm3 Urine WBC (Auto) 36.0 H (0.0-6.0) /HPF
--- NOTE | 2021-02-07 11:51 | Discharge Summary ---
Providers - Providers Date of Admission: 02/03/21 16:55 Date of discharge: 02/07/21 Attending physician: KOBE PARRA 02/01/21 01:41 Consult to Physician [CONS] Routine Comment: [place] [facility] [place] Instructions: Reason For Exam: labor 02/06/21 17:14 Consult to Physician [CONS] Routine Comment: Consulting Provider: NATY PRITCHARD Physician Instructions: Reason For Exam: tachycardia Primary care physician: KOBE PARRA Hospitalization Reason for admission: rupture of membranes, other (PPROM) Delivery: Episiotomy: none Laceration: none complications: retained placenta, UTI Discharge diagnosis: delivery [place] baby: male Pertinent studies: Labs, ultrasound Hospital course: Stable hospital course Condition at discharge: Good Disposition: DC-01 TO HOME OR SELFCARE - Discharge Diagnoses (1) delivery Status: Acute (2) Anemia Status: Chronic Qualifiers: Anemia type: iron deficiency Plan - Discharge Medications Prescriptions: Ferrous Sulfate [Feosol 325 MG tab] 325 mg PO BID #120 tablet Ibuprofen [Motrin 600 MG tab] 600 mg PO Q6H #30 tablet - Provider Discharge Summary Activity: routine, no sex for 6 weeks, no heavy lifting 4 weeks, no strenuous exercise Diet: routine Instructions: routine Additional instructions: 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 Follow up at [facility] office on 02/13/21. Call your doctor immediately for: * Fever > 100.5 * Heavy vaginal bleeding ( >1 pad per hour) * Severe persistent headache * Shortness of breath * Reddened, hot, painful area to leg or breast - Follow up plan Follow up: OKBE PARRA MD [Primary Care Provider] - 02/13/21 Forms: [facility] Discharge Summary, Discharge Signature Page
--- NOTE | 2021-02-07 12:12 | Progress Note ---
Assessment and Plan Assessment and plan: --Sinus tachycardia; Resolved, patient's heart rate ranged between 80s and 90s Patient is asymptomatic Continue current management Patient is hemodynamically and clinically stable for discharge Patient is to follow with primary care physician for further evaluation and management Patient is medically stable for discharge Plan of care reviewed with the patient and her nurse Thank you for this consultation We will sign off History Interval history: I have seen and examined the patient in labor delivery unit Hospitalist service was consulted for tachycardia yesterday Today patient feels better heart rate ranges between 80s to 90s No symptoms of chest pain palpitation or shortness of breath Patient is alert awake oriented x3 Vital signs stable Hospitalist Physical - Constitutional Vitals: Temp Pulse Resp BP Pulse Ox 98.3 F 90 18 104/62 99 02/07/21 07:44 02/07/21 07:44 02/07/21 07:44 02/07/21 07:44 02/07/21 07:44 General appearance: Present: no acute distress, well-nourished - EENT Eyes: Present: PERRL, EOM intact - Neck Neck: Present: supple, normal ROM - Respiratory Respiratory effort: normal Respiratory: bilateral: diminished, negative: rales, rhonchi, wheezing - Cardiovascular Rhythm: regular Heart Sounds: Present: S1 & S2 - Extremities Extremities: no ischemia, No edema - Abdominal General gastrointestinal: soft, non-tender, non-distended, normal bowel sounds - Integumentary Integumentary: Present: clear, warm - Psychiatric Psychiatric: appropriate mood/affect, cooperative - Neurologic Neurologic: moves all extremities Results - Labs CBC & Chem 7: 02/07/21 10:50 02/01/21 03:25 Labs: Laboratory Last Values WBC 17.1 K/mm3 (4.5-11.0) H 02/06/21 11:11 RBC 2.51 M/mm3 (3.65-5.03) L 02/06/21 11:11 Hgb 9.0 gm/dl (10.1-14.3) L 02/07/21 10:50 Hct 26.6 % (30.3-42.9) L 02/07/21 10:50 MCV 87 fl (79-97) 02/06/21 11:11 MCH 30 pg (28-32) 02/06/21 11:11 MCHC 34 % (30-34) 02/06/21 11:11 RDW 15.6 % (13.2-15.2) H 02/06/21 11:11 Plt Count 196 K/mm3 (140-440) 02/06/21 11:11 Lymph % (Auto) 13.7 % (13.4-35.0) 02/01/21 03:25 [place] % (Auto) 7.8 % (0.0-7.3) H 02/01/21 03:25 Eos % (Auto) 0.8 % (0.0-4.3) 02/01/21 03:25 Baso % (Auto) 0.2 % (0.0-1.8) 02/01/21 03:25 Lymph # (Auto) 2.0 K/mm3 (1.2-5.4) 02/01/21 03:25 [place] # (Auto) 1.1 K/mm3 (0.0-0.8) H 02/01/21 03:25 Eos # (Auto) 0.1 K/mm3 (0.0-0.4) 02/01/21 03:25 Baso # (Auto) 0.0 K/mm3 (0.0-0.1) 02/01/21 03:25 Add Manual Diff Complete 02/06/21 11:11 Total Counted 100 02/06/21 11:11 Seg Neutrophils % 77.5 % (40.0-70.0) H 02/01/21 03:25 Seg Neuts % (Manual) 90.0 % (40.0-70.0) H 02/06/21 11:11 Band Neutrophils % 1.0 % 02/05/21 19:32 Lymphocytes % (Manual) 5.0 % (13.4-35.0) L 02/06/21 11:11 Monocytes % (Manual) 5.0 % (0.0-7.3) 02/06/21 11:11 Nucleated RBC % Not Reportable 02/06/21 11:11 Seg Neutrophils # 11.4 K/mm3 (1.8-7.7) H 02/01/21 03:25 Seg Neutrophils # Man 15.4 K/mm3 (1.8-7.7) H 02/06/21 11:11 Band Neutrophils # 0.0 K/mm3 02/06/21 11:11 Lymphocytes # (Manual) 0.9 K/mm3 (1.2-5.4) L 02/06/21 11:11 Abs React Lymphs (Man) 0.0 K/mm3 02/06/21 11:11 Monocytes # (Manual) 0.9 K/mm3 (0.0-0.8) H 02/06/21 11:11 Eosinophils # (Manual) 0.0 K/mm3 (0.0-0.4) 02/06/21 11:11 Basophils # (Manual) 0.0 K/mm3 (0.0-0.1) 02/06/21 11:11 Metamyelocytes # 0.0 K/mm3 02/06/21 11:11 Myelocytes # 0.0 K/mm3 02/06/21 11:11 Promyelocytes # 0.0 K/mm3 02/06/21 11:11 Blast Cells # 0.0 K/mm3 02/06/21 11:11 WBC Morphology Not Reportable 02/06/21 11:11 Hypersegmented Neuts Not Reportable 02/06/21 11:11 Hyposegmented Neuts Not Reportable 02/06/21 11:11 Hypogranular Neuts Not Reportable 02/06/21 11:11 Smudge Cells Not Reportable 02/06/21 11:11 Toxic Granulation Not Reportable 02/06/21 11:11 Toxic Vacuolation Not Reportable 02/06/21 11:11 Dohle Bodies Not Reportable 02/06/21 11:11 Pelger-Huet Anomaly Not Reportable 02/06/21 11:11 Deven Rods Not Reportable 02/06/21 11:11 Platelet Estimate Consistent w auto 02/06/21 11:11 Clumped Platelets Not Reportable 02/06/21 11:11 Plt Clumps, EDTA Not Reportable 02/06/21 11:11 Large Platelets Not Reportable 02/06/21 11:11 Giant Platelets Not Reportable 02/06/21 11:11 Platelet Satelliting Not Reportable 02/06/21 11:11 Plt Morphology Comment Not Reportable 02/06/21 11:11 RBC Morphology Normal 02/06/21 11:11 Dimorphic RBCs Not Reportable 02/06/21 11:11 Polychromasia Not Reportable 02/06/21 11:11 Hypochromasia Not Reportable 02/06/21 11:11 Poikilocytosis Not Reportable 02/06/21 11:11 Anisocytosis Not Reportable 02/06/21 11:11 Microcytosis Not Reportable 02/06/21 11:11 Macrocytosis Not Reportable 02/06/21 11:11 Spherocytes Not Reportable 02/06/21 11:11 Pappenheimer Bodies Not Reportable 02/06/21 11:11 Sickle Cells Not Reportable 02/06/21 11:11 Target Cells Not Reportable 02/06/21 11:11 Tear Drop Cells Not Reportable 02/06/21 11:11 Ovalocytes Not Reportable 02/06/21 11:11 Helmet Cells Not Reportable 02/06/21 11:11 [place] Bodies Not Reportable 02/06/21 11:11 [place] Rings Not Reportable 02/06/21 11:11 [place] Cells Not Reportable 02/06/21 11:11 Bite Cells Not Reportable 02/06/21 11:11 Crenated Cell Not Reportable 02/06/21 11:11 Elliptocytes Not Reportable 02/06/21 11:11 Acanthocytes (Spur) Not Reportable 02/06/21 11:11 Rouleaux Not Reportable 02/06/21 11:11 Hemoglobin C Crystals Not Reportable 02/06/21 11:11 Schistocytes Not Reportable 02/06/21 11:11 Malaria parasites Not Reportable 02/06/21 11:11 New Bodies Not Reportable 02/06/21 11:11 Hem Pathologist Commnt No 02/06/21 11:11 Sodium 136 mmol/L (137-145) L 02/01/21 03:25 Potassium 3.7 mmol/L (3.6-5.0) 02/01/21 03:25 Chloride 101.3 mmol/L (98-107) 02/01/21 03:25 Carbon Dioxide 22 mmol/L (22-30) 02/01/21 03:25 Anion Gap 16 mmol/L 02/01/21 03:25 BUN 6 mg/dL (7-17) L 02/01/21 03:25 Creatinine 0.6 mg/dL (0.6-1.2) 02/01/21 03:25 Estimated GFR > 60 ml/min 02/01/21 03:25 BUN/Creatinine Ratio 10 % 02/01/21 03:25 Glucose 107 mg/dL (65-100) H 02/01/21 03:25 Calcium 8.7 mg/dL (8.4-10.2) 02/01/21 03:25 Magnesium 5.40 mg/dL (1.7-2.3) H 02/01/21 07:45 Total Bilirubin < 0.20 mg/dL (0.1-1.2) 02/01/21 03:25 AST 17 units/L (5-40) 02/01/21 03:25 ALT 10 units/L (7-56) 02/01/21 03:25 Alkaline Phosphatase 139 units/L (35-129) H 02/01/21 03:25 Total Protein 6.8 g/dL (6.3-8.2) 02/01/21 03:25 Albumin 3.6 g/dL (3.9-5) L 02/01/21 03:25 Albumin/Globulin Ratio 1.1 % 02/01/21 03:25 Urine Color Yellow (Yellow) 02/06/21 21:50 Urine Turbidity Hazy (Clear) 02/06/21 21:50 Urine pH 7.0 (5.0-7.0) 02/06/21 21:50 Ur Specific [place] 1.018 (1.003-1.030) 02/06/21 21:50 Urine Protein <15 mg/dl mg/dL (Negative) 02/06/21 21:50 Urine Glucose (UA) Neg mg/dL (Negative) 02/06/21 21:50 Urine Ketones Neg mg/dL (Negative) 02/06/21 21:50 Urine Blood Mod (Negative) 02/06/21 21:50 Urine Nitrite Neg (Negative) 02/06/21 21:50 Urine Bilirubin Neg (Negative) 02/06/21 21:50 Urine Urobilinogen 4.0 mg/dL (<2.0) 02/06/21 21:50 Ur Leukocyte Esterase Mod (Negative) 02/06/21 21:50 Urine WBC (Auto) 36.0 /HPF (0.0-6.0) H 02/06/21 21:50 Urine RBC (Auto) 52.0 /HPF (0.0-6.0) 02/06/21 21:50 U Epithel Cells (Auto) 1.0 /HPF (0-13.0) 02/06/21 21:50 Urine Mucus Few /HPF 02/06/21 21:50 Membranes Rupture Positive (Negative) A 02/01/21 00:45 C.trachomatis DNA (SDA) Not detected (Not Detected) 02/03/21 07:42 Coronavirus (PCR) Negative (Negative) 02/01/21 08:47 N.gonorrhoeae DNA (SDA) Not detected (Not Detected) 02/03/21 07:42 Blood Type O POSITIVE 02/04/21 11:45 Antibody Screen Negative 02/04/21 11:45 Crossmatch See Detail 02/04/21 11:45 Active Medications - Current Medications Current Medications: Generic Name Dose Route Start Last Admin Trade Name Freq PRN Reason Stop Dose Admin Acetaminophen 650 mg 02/04/21 09:00 Acetaminophen 325 Mg Tab PO Q4H PRN Pain MILD(1-3)/Fever >100.5/NYE Bisacodyl 10 mg 02/04/21 10:00 Bisacodyl 10 Mg Rect Supp [place] BID PRN Constipation Butorphanol Tartrate 2 mg 02/03/21 19:11 02/03/21 19:26 Butorphanol 2 Mg/1 Ml Inj IV 2 mg Q1H PRN Administration Labor Pain Diphenhydramine HCl 25 mg 02/04/21 09:00 Diphenhydramine 25 Mg Cap PO Q6H PRN Itching Ephedrine Sulfate 10 mg 02/03/21 21:08 Ephedrine Sulfate 50 Mg/1 Ml Inj IV Q2M PRN Hypotension Ferrous Sulfate 325 mg 02/06/21 10:00 02/06/21 23:27 Ferrous Sulfate 325 Mg Tab PO 325 mg BID ANA Administration Lactated Ringer's 1,000 mls @ 125 mls/hr 02/01/21 01:45 02/03/21 21:02 Lactated Ringers IV 125 mls/hr DIRECT ANA Administration Fentanyl/Bupivacaine/Sodium Chlor 200 mcg in 100 mls @ 10 mls/hr 02/03/21 22:00 02/03/21 21:41 Fentanyl-Bupiv 2 Mcg/Ml-0.125% EPIDURAL 10 mls/hr TITR ANA Administration Protocol Ceftriaxone Sodium 2 gm in 100 mls @ 200 mls/hr 02/06/21 23:00 02/06/21 23:49 Rocephin/Ns 2 Gm/100 Ml IV 200 mls/hr Q24HR@2200 [facility] Administration Protocol Ibuprofen 600 mg 02/04/21 09:00 02/07/21 03:00 Ibuprofen 600 Mg Tab PO Not Given Q6H [facility] Magnesium Hydroxide 30 ml 02/04/21 22:00 Magnesium Hydroxide (Mom) Oral Liqd Udc PO HS PRN Constipation Multi-Ingredient Ointment 1 applic 02/04/21 10:00 Lanolin/Zinc/Dimethicone (Lansinoh) 7 Gm TP PRN PRN Sore Nipples Nalbuphine HCl 10 mg 02/03/21 17:00 Nalbuphine 10 Mg/1 Ml Inj IV Q2H PRN Pain, Moderate (4-6) Naloxone HCl 0.2 mg 02/03/21 21:08 Naloxone 2 Mg/2 Ml Inj IV Q5M PRN Respiratory sedation Ondansetron HCl 4 mg 02/04/21 09:00 Ondansetron 4 Mg/2 Ml Inj IV Q8H PRN Nausea And Vomiting Oxycodone/Acetaminophen 1 tab 02/04/21 09:00 02/06/21 08:53 Oxycodone /Acetaminophen 5-325mg Tab PO 1 tab Q6H PRN Administration Pain, Moderate (4-6) Promethazine HCl 25 mg 02/04/21 09:00 Promethazine 25 Mg Rect Supp VT Q6H PRN Nausea And Vomiting Promethazine HCl 25 mg 02/04/21 09:00 Promethazine 25 Mg Tab PO Q6H PRN Nausea And Vomiting Sodium Chloride 10 ml 02/04/21 09:00 Sodium Chloride 0.9% 10 Ml Flush Syringe IV 02/16/21 08:59 PRN NR Witch Emilie/Glycerin 1 each 02/04/21 09:00 Witch Emilie/ Glycerin Pad TP PRN PRN Hemorrhoid/cleansing/soothing
[2021-02-07 14:46] VITALS: BP 108/67
== END 2021-02-07 15:40 | disposition home or self-care (01) | DRG 797 ==
LOC: TRG 00:08 → APU 00:19 → LD 02:00 → TRG 02-03 16:55 → OB 02-04 12:09
PROVIDERS: ADMIT Obstetrics & Gynecology; ATTEND Obstetrics & Gynecology
PROC: 10E0XZZ Delivery of Products of Conception, External Approach (ICD-10-PCS; principal; 2021-02-04)
PROC: 10D17ZZ Extraction of Products of Conception, Retained, Via Natural or Artificial Opening (ICD-10-PCS; 2021-02-04)
PROC: 30233N1 Transfusion of Nonautologous Red Blood Cells into Peripheral Vein, Percutaneous Approach (ICD-10-PCS; 2021-02-04)
PROC: 3E0R3BZ Introduction of Anesthetic Agent into Spinal Canal, Percutaneous Approach (ICD-10-PCS; 2021-02-04)
PROC: 00HU33Z Insertion of Infusion Device into Spinal Canal, Percutaneous Approach (ICD-10-PCS; 2021-02-04)
DX: O41.03X0 Oligohydramnios, third trimester, not applicable or unspecified (principal); O72.2 Delayed and secondary postpartum hemorrhage; Z37.0 Single live birth; O99.12 Other diseases of the blood and blood-forming organs and certain disorders involving the immune mechanism complicating childbirth; O42.013 Preterm premature rupture of membranes, onset of labor within 24 hours of rupture, third trimester; O75.4 Other complications of obstetric surgery and procedures; D50.0 Iron deficiency anemia secondary to blood loss (chronic); O99.02 Anemia complicating childbirth; D72.829 Elevated white blood cell count, unspecified; Z20.822 Contact with and (suspected) exposure to COVID-19
CPT/HCPCS: 36415; 76805; 76815; 76819; 80053; 81001; 83735; 84112; 85007; 85014; 85018; 85025; 86850; 86900; 86901; 86920; 87086; 87116; 87210; 87591; 88305; 93005; 94660; 99211; G0378; G0463; J0290; J0456; J0595; J0690; J0696; J0702; J1750; J2001; J2250; J2300; J2405; J2704; J3475; J3490; J7120; P9016; U0003

== ENCOUNTER 2021-02-13 10:17 | Emergency (ER) | payer MEDICAID, OTHER ==
--- NOTE | 2021-02-13 12:03 | Emergency Department Report ---
ED Shortness of Breath HPI - General Chief Complaint: Dyspnea/Respdistress Stated Complaint: POSSIBLE PE/HAD BABY ON 02/04/2021 Time Seen by Provider: 02/13/21 11:58 Source: patient Mode of arrival: Ambulatory Limitations: No Limitations - History of Present Illness Initial Comments: CC: "difficulty with breath" HPI: This is a 30 yo female who presents with shortness of breath. She delivered baby vaginally 9 days ago February 04. She had subsequent surgery for retained placenta. She developed shortness of breath after being discharged. She denies fever, headache, cough, chest pain,, leg pain, swelling. MD Complaint: shortness of breath -: Gradual, days(s) (Several days) Severity: mild Consistency: constant Improves With: nothing Worsens With: nothing Known History Of: other (No history of lung disease) Associated Symptoms: denies other symptoms Treatments Prior to Arrival: none - Related Data Home Medications Medication Instructions Recorded Confirmed Last Taken One Daily Tablet 1 tab PO DAILY 02/01/21 02/01/21 Unknown Previous Rx's Medication Instructions Recorded Last Taken Type Ferrous Sulfate [Feosol 325 MG tab] 325 mg PO BID #120 tablet 02/06/21 Unknown Rx Ibuprofen [Motrin 600 MG tab] 600 mg PO Q6H #30 tablet 02/06/21 Unknown Rx Allergies Allergy/AdvReac Type Severity Reaction Status Date / Time No Known Allergies Allergy Verified 02/13/21 10:30 ED Review of Systems ROS: Stated complaint: POSSIBLE PE/HAD BABY ON 02/04/2021 Other details as noted in HPI Comment: All other systems reviewed and negative Constitutional: denies: fever, malaise Respiratory: shortness of breath. denies: cough Cardiovascular: denies: chest pain Gastrointestinal: denies: abdominal pain, nausea, vomiting ED Past Medical Hx - Past Medical History Previous Medical History?: Yes Hx Hypertension: No Hx Congestive Heart Failure: No Hx Diabetes: No Hx Deep Vein Thrombosis: No Hx Renal Disease: No Hx Sickle Cell Disease: No Hx Seizures: No Hx Asthma: No Hx COPD: No - Surgical History Past Surgical History?: Yes Additional Surgical History: D&C - Family History Family history: hypertension - Social History Smoking Status: Never Smoker Substance Use Type: None - Medications Home Medications: Home Medications Medication Instructions Recorded Confirmed Last Taken Type One Daily Tablet 1 tab PO DAILY 02/01/21 02/01/21 Unknown History Ferrous Sulfate [Feosol 325 MG tab] 325 mg PO BID #120 tablet 02/06/21 Unknown Rx Ibuprofen [Motrin 600 MG tab] 600 mg PO Q6H #30 tablet 02/06/21 Unknown Rx ED Physical Exam - General Limitations: No Limitations General appearance: alert, in no apparent distress - Head Head exam: Present: atraumatic, normocephalic - Eye Eye exam: Present: normal appearance - ENT ENT exam: Present: mucous membranes moist - Neck Neck exam: Present: normal inspection - Respiratory Respiratory exam: Present: normal lung sounds bilaterally. Absent: respiratory distress, wheezes, rales, rhonchi - Cardiovascular Cardiovascular Exam: Present: regular rate, normal rhythm, normal heart sounds. Absent: systolic murmur, diastolic murmur, rubs, gallop - GI/Abdominal GI/Abdominal exam: Present: soft, normal bowel sounds. Absent: distended, tenderness, guarding, rebound - Extremities Exam Extremities exam: Present: normal inspection - Neurological Exam Neurological exam: Present: alert, oriented X3 - Psychiatric Psychiatric exam: Present: normal affect, normal mood - Skin Skin exam: Present: warm, dry, intact, normal color. Absent: rash ED Course Vital Signs 02/13/21 02/13/21 02/13/21 10:34 11:59 12:00 Temperature 98.5 F Pulse Rate 91 H 77 78 Respiratory 20 18 24 Rate Blood Pressure 119/59 Blood Pressure [Left] O2 Sat by Pulse 98 100 100 Oximetry 02/13/21 02/13/21 02/13/21 12:16 12:21 12:30 Temperature 98.1 F Pulse Rate 76 77 67 Respiratory 23 17 25 H Rate Blood Pressure 107/72 103/65 Blood Pressure 107/72 [Left] O2 Sat by Pulse 100 100 Oximetry 02/13/21 02/13/21 02/13/21 13:00 13:30 13:46 Temperature Pulse Rate 72 67 66 Respiratory 27 H 23 19 Rate Blood Pressure 103/65 103/65 103/65 Blood Pressure [Left] O2 Sat by Pulse 100 100 100 Oximetry 02/13/21 02/13/21 02/13/21 13:47 14:00 14:16 Temperature Pulse Rate 67 77 82 Respiratory 23 22 19 Rate Blood Pressure 103/65 103/65 Blood Pressure 103/65 [Left] O2 Sat by Pulse 100 100 100 Oximetry 02/13/21 14:38 Temperature Pulse Rate 82 Respiratory 19 Rate Blood Pressure Blood Pressure [Left] O2 Sat by Pulse 100 Oximetry ED Medical Decision Making - Lab Data Result diagrams: 02/13/21 12:20 02/13/21 12:20 - EKG Data -: EKG Interpreted by Me EKG shows normal: sinus rhythm, axis, intervals, QRS complexes, ST-T waves Rate: normal - EKG Data Interpretation: normal EKG 02/13/21 12:32 EKG obtained 1046 EKG interpreted by me Normal sinus rhythm normal rate normal axis normal intervals no ST elevation no ST-T signs of ischemia normal EKG rate 80 bpm Second EKG obtained 1229 No changes from previous, normal EKG. Rate 70 bpm normal axis normal intervals no ST-T sign ischemia - Radiology Data Radiology results: report reviewed [facility] [address] [id number] Cat Scan Report Signed Patient: BANG RODGERS MR#: [id number] : 1990 Acct:[id number] Age/Sex: 30 / F ADM Date: 02/13/21 Loc: ED Attending Dr: Ordering Physician: Jessica aVliente MD Date of Service: 02/13/21 Procedure(s): CT angio chest Accession Number(s): [id number] cc: Jessica Valiente MD CTA CHEST WITH CONTRAST INDICATION / CLINICAL INFORMATION: post post op shortness of breath 100 ML OMNI 350 . TECHNIQUE: Axial CT images were obtained through the chest after injection of 100 mL's of Omnipaque 350 IV contrast. 3 plane MIP and/or 3D reconstructions were produced. All CT scans at this location are performed using CT dose reduction for ALARA by means of automated exposure control. COMPARISON: None available. FINDINGS: PULMONARY ARTERIES: No pulmonary emboli. THORACIC AORTA: No significant abnormality. HEART: No significant abnormality. CORONARY ARTERY CALCIFICATION: None. MEDIASTINUM / JACLYN: No significant abnormality. PLEURA: No pleural effusion. No pneumothorax. LUNGS: No acute air space or interstitial disease. There is atelectasis versus scarring in the left lung base. ADDITIONAL FINDINGS: None. UPPER ABDOMEN: No acute findings. SKELETAL STRUCTURES: No significant osseous abnormality. IMPRESSION: 1. No CT evidence for pulmonary embolism. 2. No acute findings. Signer Name: Isauro Luis Lombardi DO Signed: 02/13/2021 2:49 PM Workstation Name: [id number] Transcribed By: MAURI Dictated By: ISAURO LOMBARDI DO Electronically Authenticated By: ISAURO LOMBARDI DO Signed Date/Time: 02/13/21 1449 DD/ 1443 TD/TT: [facility] [address] [place] [address] XRay Report Signed Patient: BANG RODGERS MR#: [id number] : 1990 Acct:[id number] Age/Sex: 30 / F ADM Date: 02/13/21 Loc: ED Attending Dr: Ordering Physician: Jessica Valiente MD Date of Service: 02/13/21 Procedure(s): XR chest 1V ap Accession Number(s): [id number] cc: Jessica Valiente MD Fluoro Ti me In Minutes: CHEST 1 VIEW INDICATION: Dyspnea. COMPARISON: None. FINDINGS: Support devices: None. Heart: Normal. Lungs/Pleura: No acute pulmonary or pleural findings. IMPRESSION: 1. No acute findings. Signer Name: Winston Lynn MD Signed: 02/13/2021 12:34 PM Workstation Name: [id number] Transcribed By: CHIQUI Dictated By: Winston Lynn MD Electronically Authenticated By: Winston Lynn MD Signed Date/Time: 02/13/21 1234 DD/ 1234 TD/TT: - Medical Decision Making Dyspnea s/p vaginal delivery and D&C: PE, cardiomyopathy, PNA ruled out. Early COVID infection a consideration. Patient given return precautions. Chest radiograph and CT angiogram BMP CBC chemistry all Without abnormality. Minimally elevated leukocytosis expected in the period. Critical care attestation.: If time is entered above; I have spent that time in minutes in the direct care of this critically ill patient, excluding procedure time. ED Disposition Clinical Impression: Viral syndrome Disposition: DC-01 TO HOME OR SELFCARE Is pt being admited?: No Does the pt Need Aspirin: No Condition: Stable Instructions: Viral Respiratory Infection, Igat-Op-Luvu
--- NOTE | 2021-02-13 12:39 | XRay Report ---
CHEST 1 VIEW INDICATION: Dyspnea. COMPARISON: None. FINDINGS: Support devices: None. Heart: Normal. Lungs/Pleura: No acute pulmonary or pleural findings. IMPRESSION: 1. No acute findings. Signer Name: Winston Lynn MD Signed: 02/13/2021 12:34 PM Workstation Name: [id number]
--- NOTE | 2021-02-13 12:41 | Electrocardiograph Report ---
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
[2021-02-13 13:04] LABS: Hematocrit 31.5 % (30.3-42.9); Hemoglobin 10.4 gm/dl (10.1-14.3); Mean Corpuscular HGB Conc 33 % (30-34); Mean Corpuscular Volume 89 fl (79-97); Platelet Count 617 K/mm3 (140-440); Red Blood Count 3.54 M/mm3 (3.65-5.03); Red Cell Distribution Width 15.8 % (13.2-15.2)
[2021-02-13 13:40] LABS: Blood Urea Nitrogen 13 mg/dL (7-17); Hemolysis Index 9
[2021-02-13 13:43] LABS: BUN/Creatinine Ratio 33
[2021-02-13 13:47] VITALS: BP 103/65
[2021-02-13 14:38] LABS: Anisocytosis Few; Myelocytes # (Manual) 0.2 K/mm3; Platelet Estimate Consistent w Auto; Total Cells Counted 100
--- NOTE | 2021-02-13 14:53 | Cat Scan Report ---
CTA CHEST WITH CONTRAST INDICATION / CLINICAL INFORMATION: post post op shortness of breath 100 ML OMNI 350 . TECHNIQUE: Axial CT images were obtained through the chest after injection of 100 mL's of Omnipaque 3 50 IV contrast. 3 plane MIP and/or 3D reconstructions were produced. All CT scans at this location ar e performed using CT dose reduction for ALARA by means of automated exposure control. COMPARISON: None available. FINDINGS: PULMONARY ARTERIES: No pulmonary emboli. THORACIC AORTA: No significant abnormality. HEART: No significant abnormality. CORONARY ARTERY CALCIFICATION: None. MEDIASTINUM / JACLYN: No significant abnormality. PLEURA: No pleural effusion. No pneumothorax. LUNGS: No acute air space or interstitial disease. There is atelectasis versus scarring in the left l alecia base. ADDITIONAL FINDINGS: None. UPPER ABDOMEN: No acute findings. SKELETAL STRUCTURES: No significant osseous abnormality. IMPRESSION: 1. No CT evidence for pulmonary embolism. 2. No acute findings. Signer Name: Isauro Everett DO Signed: 02/13/2021 2:49 PM Workstation Name: [email or web address]
--- NOTE | 2021-02-14 14:07 | Electrocardiograph Report ---
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
== END 2021-02-13 15:22 | disposition home or self-care (01) ==
LOC: ED 10:17
DX: B34.9 Viral infection, unspecified (principal); Z79.899 Other long term (current) drug therapy; Z98.890 Other specified postprocedural states
CPT/HCPCS: 36415; 71045; 71275; 80048; 83880; 85007; 85025; 93005; 99284; Q9967